=== PATIENT | male | born 1945 | race Two or more races ===

== ENCOUNTER → 2016-09-11 | Outpatient (CLI) | payer OTHER ==
[~2016-09-11] MED LIST: ASPI-231 PO; GLIP-115 PO; LIDOCAINE 2%HCL (LOCAL ANESTH.) INJ 20ML MDV ONE; LISI-646 PO; METF-312 PO; PANT40TA2 PO
== END | disposition home or self-care (01) ==
LOC: US 09:49
PROVIDERS: ATTEND Internal Medicine
DX: N63 Unspecified lump in breast (principal)
CPT/HCPCS: 76942

== ENCOUNTER → 2017-03-20 | Outpatient (CLI) | payer OTHER ==
[~2017-03-20] MED LIST changes: -LIDOCAINE 2%HCL (LOCAL ANESTH.) INJ 20ML MDV ONE; -METF-312 PO; +METF-370 PO
[2017-03-20 07:42] LABS: Basophils # (auto) 0.1 uL; CONDITION Y; DEFINITIVE SEE PRINTOUT; Neutrophils # (auto) 4.5 uL
[2017-03-20 07:59] LABS: Basophils % (auto) 0.5 % (0.0-2.0); Eosinophils # (auto) 0.6 uL; Hematocrit 45.2 % (41.0-53.0); Hemoglobin 15.5 g/dL (13.5-17.5); Lymphocytes # (auto) 3.7 uL; Lymphocytes % (auto) 35.9 % (10.0-50.0); Mean Corpuscular Hemoglobin 32.3 pg (28.0-32.0); Mean Corpuscular Hgb Conc. 34.2 g/dL (32.0-36.0); Mean Corpuscular Volume 94.5 fL (80.0-100.0); Mean Platelet Volume 9.6 fL (7.4-10.4); Monocytes # (auto) 1.4 uL; Monocytes % (auto) 13.4 % (0.0-12.0); Neutrophils % (auto) 44.2 % (37.0-80.0); Platelet Count (auto) 225 10^3/uL (140-450); Red Cell Distribution Width 14.4 % (11.6-16.0); White Blood Cell 10.2 10^3/uL (4.4-10.8)
[2017-03-20 08:26] LABS: Albumin 3.4 g/dL (3.4-5.0); BUN/Creatinine Ratio 14.5; Bilirubin, Total 0.8 mg/dL (0.2-1.0); Calcium 8.5 mg/dL (8.5-10.1); Potassium 3.9 mmol/L (3.5-5.1); Total Protein 7.6 g/dL (6.4-8.2)
== END | disposition home or self-care (01) ==
LOC: LAB 06:51
PROVIDERS: ATTEND Internal Medicine
DX: E78.4 Other hyperlipidemia (principal); E11.311 Type 2 diabetes mellitus with unspecified diabetic retinopathy with macular edema; Z12.5 Encounter for screening for malignant neoplasm of prostate; Z12.11 Encounter for screening for malignant neoplasm of colon
CPT/HCPCS: 36415; 80053; 80061; 82043; 82270; 82306; 83036; 84153; 84443; 85025

== ENCOUNTER 2017-06-15 05:49 | Inpatient (IN) | payer OTHER ==
[~2017-06-15] VITALS: Ht 165.1 cm; Wt 74.8 kg
[2017-06-15] MEDS ORDERED: MORPHINE SULF INJ 2 MG/ML SYRINGE 1ML IV ONE ×2 (06:15→08:30)
[2017-06-15] MEDS ORDERED: ASPirin 81 mg TAB PO ONE ×3 (06:15→11:00)
[2017-06-15] MEDS ORDERED: NITROGLYCERIN 0.4MG/HR TOPICAL PATCH TD ONE (06:15)
[2017-06-15] MEDS ORDERED: ONDANSETRON HCL 4 MG/2 ML VIAL IV ONE (06:15)
[2017-06-15 06:27] LABS: Hemoglobin 15.9 g/dL (13.5-17.5); Mean Corpuscular Hgb Conc. 33.7 g/dL (32.0-36.0); Mean Corpuscular Volume 94.9 fL (80.0-100.0); Mean Platelet Volume 8.3 fL (6.9-10.8); Platelet Count (auto) 201 10^3/uL (140-450); Red Cell Distribution Width 14.5 % (11.8-14.3)
[2017-06-15 06:42] LABS: INR 1.02 (0.9-1.15); Partial Thromboplastin Time 27.5 sec (22.64-33.71); Prothrombin Time 11.1 sec (9.37-12.3)
[2017-06-15 06:56] LABS: Albumin 3.6 g/dL (3.4-5.0); Alkaline Phosphatase 85 U/L (45-117); Anion Gap 7 (5-15); Aspartate Aminotransferase 23 U/L (15-37); BUN/Creatinine Ratio 10.9; Bilirubin, Total 1.1 mg/dL (0.2-1.0); Blood Urea Nitrogen 10 mg/dL (7-18); Calcium 8.3 mg/dL (8.5-10.1); Carbon Dioxide 27 mmol/L (21-32); Chloride 104 mmol/L (98-107); GFR African American 104 mL/min; GFR Non-African American 86 mL/min; Glucose 142 mg/dL (74-106); Magnesium 2.2 mg/dL (1.6-2.6); Potassium 3.9 mmol/L (3.5-5.1); Sodium 138 mmol/L (136-145); Total Protein 8.1 g/dL (6.4-8.2)
[2017-06-15 07:24] LABS: B-Type Natriuretic Peptide 25.1 pg/mL (0-100); Temperature: 21.5 C (20.0-25.0)
[2017-06-15] MEDS ORDERED: NITROGLYCERIN 0.4 MG SL TAB SL ONE (10:00)
[2017-06-15] MEDS ORDERED: ZOLPIDEM TARTRATE 5 MG TAB PO PRN ×2 (10:30→14:15)
[2017-06-15] MEDS ORDERED: MORPHINE SULF INJ 2 MG/ML SYRINGE 1ML IV PRN ×3 (10:30→14:15)
[2017-06-15] MEDS ORDERED: LORazepam 0.5 MG TAB PO PRN (10:30)
[2017-06-15] MEDS ORDERED: ONDANSETRON HCL 4 MG/2 ML VIAL IV PRN ×2 (10:30→14:15)
[2017-06-15] MEDS ORDERED: NITROGLYCERIN 0.4 MG SL TAB SL PRN ×4 (10:30→14:15)
[2017-06-15] MEDS ORDERED: ACETAMINOPHEN 325 MG TAB PO PRN (10:30)
[2017-06-15] MEDS ORDERED: ALUM & MAG HYDROX-SIMETH LIQ(MAALOX) 30 ML PO ONE (10:30)
[2017-06-15] MEDS ORDERED: cloNIDine HCL 0.1 MG TAB PO PRN (10:30)
[2017-06-15] MEDS ORDERED: DEXTROSE (50%) 50ML SYRG IV PRN (10:30)
[2017-06-15 10:31] LABS: Metamyelocytes % 0; Myelocytes % 0; Promyelocytes % 0; Reactive Lymphocytes 0
[2017-06-15 10:33] LABS: Platelet Estimate Adequate
[2017-06-15 10:34] LABS: Tear Drop Cells S
[2017-06-15] MEDS ORDERED: PANTOPRAZOLE 40 MG TAB PO ONE (10:45)
[2017-06-15] MEDS ORDERED: glipiZIDE 5 MG TAB PO ONE ×2 (10:45→11:00)
[2017-06-15] MEDS ORDERED: CLOPIDOGREL BISULFATE 75 MG TAB PO ONE ×2 (10:45→11:00)
[2017-06-15] MEDS ORDERED: MIDAZOLAM HCL 1MG/1ML-2 ML VIAL ONE (10:51)
[2017-06-15] MEDS ORDERED: SODIUM CHL 0.9% 50 ML ONE (10:51)
[2017-06-15] MEDS ORDERED: fentaNYL CITRATE 100 MCG/2 ML VL ONE (10:51)
[2017-06-15] MEDS ORDERED: LIDOCAINE 2%HCL (LOCAL ANESTH.) INJ 20ML MDV ONE (10:53)
[2017-06-15] MEDS ORDERED: IODIXANOL 320MG/ML 100ML BTL IV ONE (10:53)
[2017-06-15] MEDS ORDERED: ANGIOMAX 250 MG VIAL IV ONE (10:55)
[2017-06-15] MEDS ORDERED: CARVEDILOL 3.125 MG TAB PO ONE (11:00)
[2017-06-15] MEDS ORDERED: LISINOPRIL 20 MG TAB PO ONE (11:00)
[2017-06-15] MEDS ORDERED: DOCUSATE SOD 100 MG CAP PO ONE (11:00)
[2017-06-15 11:24] LABS: Urine Bilirubin Negative (Negative); Urine Blood Negative /uL (Negative); Urine Glucose Normal (Normal); Urine Ketone Negative (Negative); Urine Mucus FEW (None Seen); Urine Nitrite Negative (Negative); Urine RBC <1 /hpf (0 - 3); Urine Squamous Epithelial Cell FEW /hpf (<5); Urine Urobilinogen Normal (Negative)
[2017-06-15 11:26] LABS: Urine Color Amber (Yellow)
[2017-06-15] MEDS ORDERED: HEPARIN 1,000 UNITS/ml 1ML VIAL ONE (12:10)
[2017-06-15] MEDS ORDERED: CLOPIDOGREL 300 MG TAB ONE (13:00)
[2017-06-15] MEDS: InsuLIN REG 1unit/0.01ml Soln (100units/ml) SC SCH ×3 (13:55→21:56)
[2017-06-15] MEDS: ACCU-CHEK COMFORT CURVE STRIP VI SCH ×3 (13:55→21:56)
[2017-06-15] MEDS ORDERED: SODIUM CHLORIDE 0.9% 1,000 ML IV SCH (14:12)
[2017-06-15] MEDS ORDERED: MILK OF MAGNESIA 30ML SUSP PO ONE (14:15)
[2017-06-15] MEDS: SODIUM CHLOR 0.9% PF (SALINE LOCK) 10ML VIAL IV SCH ×2 (14:15→21:48)
[2017-06-15] MEDS ORDERED: HYDROcodone-ACET 5/325MG TAB PO PRN (14:15)
[2017-06-15 17:00] VITALS: BP 119/71
[2017-06-15] MEDS ORDERED: CARB25TA22 PO (17:50)
[2017-06-15] MEDS ORDERED: CLOP75TA41 PO (17:51)
[2017-06-15] MEDS ORDERED: CHOL20007 PO (17:51)
[2017-06-15] MEDS ORDERED: ATOR20TA PO (17:52)
[2017-06-15] MEDS: glipiZIDE 5 MG TAB PO SCH (18:25)
[2017-06-15 19:51] VITALS: BP 109/57
[2017-06-15] MEDS: ATORVASTATIN 20 MG TAB PO SCH (21:48)
[2017-06-15] MEDS: CARVEDILOL 3.125 MG TAB PO SCH (22:00)
[2017-06-15] MEDS ORDERED: FAMOTIDINE 20 MG TAB PO SCH (22:00)
[2017-06-16] VITALS: BP 110/66
[2017-06-16 04:09] VITALS: BP 98/53
[2017-06-16 05:38] LABS: Basophils # (auto) 0.1 uL; Basophils % (auto) 0.6 % (0.0-2.0); Eosinophils # (auto) 0.4 uL; Eosinophils % (auto) 3.5 % (0.0-7.0); Hematocrit 43.4 % (41.0-53.0); Hemoglobin 14.6 g/dL (13.5-17.5); Lymphocytes # (auto) 3.3 uL; Lymphocytes % (auto) 28.8 % (10.0-50.0); Mean Corpuscular Hemoglobin 31.7 pg (28.0-32.0); Mean Corpuscular Hgb Conc. 33.7 g/dL (32.0-36.0); Mean Platelet Volume 8.5 fL (6.9-10.8); Monocytes # (auto) 1.7 uL; Monocytes % (auto) 14.8 % (0.0-12.0); Neutrophils % (auto) 52.3 % (37.0-80.0); Nucleated Red Blood Cells % 0.1 %; Platelet Count (auto) 196 10^3/uL (140-450); Red Cell Distribution Width 14.2 % (11.8-14.3); White Blood Cell 11.4 10^3/uL (4.4-10.8)
[2017-06-16 06:05] LABS: Albumin 3.1 g/dL (3.4-5.0); Bilirubin, Total 1.7 mg/dL (0.2-1.0); Potassium 3.9 mmol/L (3.5-5.1); Total Protein 6.9 g/dL (6.4-8.2)
[2017-06-16] MEDS: ACCU-CHEK COMFORT CURVE STRIP VI SCH ×4 (06:51→22:00)
[2017-06-16] MEDS: glipiZIDE 5 MG TAB PO SCH ×2 (06:51→18:00)
[2017-06-16] MEDS: SODIUM CHLOR 0.9% PF (SALINE LOCK) 10ML VIAL IV SCH ×3 (06:51→22:00)
[2017-06-16] MEDS: InsuLIN REG 1unit/0.01ml Soln (100units/ml) SC SCH ×4 (06:51→22:00)
[2017-06-16 08:00] VITALS: BP 131/98
[2017-06-16 09:14] LABS: Basophils # (auto) 0.1 uL; Eosinophils # (auto) 0.5 uL; Hemoglobin 14.8 g/dL (13.5-17.5); Mean Corpuscular Volume 95.6 fL (80.0-100.0); White Blood Cell 11.3 10^3/uL (4.4-10.8)
[2017-06-16 09:27] LABS: Basophils % (auto) 0.8 % (0.0-2.0); Eosinophils % (auto) 4.2 % (0.0-7.0); Hematocrit 44.7 % (41.0-53.0); Lymphocytes # (auto) 3.1 uL; Lymphocytes % (auto) 27.2 % (10.0-50.0); Mean Corpuscular Hemoglobin 31.6 pg (28.0-32.0); Mean Corpuscular Hgb Conc. 33.1 g/dL (32.0-36.0); Mean Platelet Volume 8.7 fL (6.9-10.8); Monocytes # (auto) 1.6 uL; Neutrophils # (auto) 6.1 uL; Neutrophils % (auto) 53.8 % (37.0-80.0); Nucleated Red Blood Cells % 0.5 %; Platelet Count (auto) 199 10^3/uL (140-450); Red Cell Distribution Width 14.8 % (11.8-14.3)
[2017-06-16] MEDS: [UNRECOGNIZED DRUG - OTHER] PO SCH (10:00)
[2017-06-16] MEDS ORDERED: PATIENTS OWN MEDICATION PO SCH ×2 (10:00)
[2017-06-16] MEDS: CARVEDILOL 3.125 MG TAB PO SCH ×2 (10:00→22:00)
[2017-06-16] MEDS: PANTOPRAZOLE 40 MG TAB PO SCH (10:11)
[2017-06-16] MEDS: ASPirin 81 mg TAB PO SCH (10:11)
[2017-06-16] MEDS: CLOPIDOGREL BISULFATE 75 MG TAB PO SCH (10:11)
[2017-06-16] MEDS: DOCUSATE SOD 100 MG CAP PO SCH (10:11)
[2017-06-16] MEDS: LISINOPRIL 20 MG TAB PO SCH (10:11)
[2017-06-16 12:00] VITALS: BP 99/52
[2017-06-16] MEDS: Boost Glucose Control 8 Ounces PO SCH ×2 (12:00→18:00)
[2017-06-16 12:46] LABS: Urine Bilirubin Negative (Negative); Urine Blood TRACE /uL (Negative); Urine Color Yellow (Yellow); Urine Glucose TRACE mg/dL (Normal); Urine Ketone Negative (Negative); Urine Mucus FEW (None Seen); Urine Nitrite Negative (Negative); Urine RBC 7 /hpf (0 - 3); Urine Squamous Epithelial Cell FEW /hpf (<5); Urine Urobilinogen Normal (Negative); Urine WBC Clumps PRESENT /hpf (None Seen); Urine pH 6.5 (5.0-8.0)
[2017-06-16] MEDS ORDERED: MEPERIDINE HCL (25 MG/ML) 1ML VIAL IV ONE (13:30)
[2017-06-16] MEDS: ACETAMINOPHEN 500 MG TAB PO PRN (14:45)
[2017-06-16] MEDS: SODIUM CHLORIDE 0.9% 1,000 ML IV SCH ×2 (14:53→19:30)
[2017-06-16 16:00] VITALS: BP 119/68
[2017-06-16] MEDS ORDERED: BACITRACIN-POLYMYXIN B TOPICAL OINT UD TOP ONE (17:34)
[2017-06-16] MEDS: BACITRACIN-POLYMYXIN B TOPICAL OINT UD TOP SCH (17:45)
[2017-06-16] MEDS ORDERED: VANCOMYCIN PER PHARMACY 0 MG IV SCH (18:45)
[2017-06-16 20:00] VITALS: BP 90/57
[2017-06-16 20:19] LABS: Basophils # (auto) 0.1 uL; Basophils % (auto) 0.3 % (0.0-2.0); Eosinophils # (auto) 0 uL; Eosinophils % (auto) 0.1 % (0.0-7.0); Hematocrit 46.1 % (41.0-53.0); Hemoglobin 15.5 g/dL (13.5-17.5); Lymphocytes # (auto) 1.5 uL; Lymphocytes % (auto) 7.5 % (10.0-50.0); Mean Corpuscular Hemoglobin 32.1 pg (28.0-32.0); Mean Corpuscular Hgb Conc. 33.6 g/dL (32.0-36.0); Mean Corpuscular Volume 95.8 fL (80.0-100.0); Mean Platelet Volume 8.5 fL (6.9-10.8); Monocytes # (auto) 2.2 uL; Monocytes % (auto) 10.9 % (0.0-12.0); Neutrophils # (auto) 16.7 uL; Neutrophils % (auto) 81.2 % (37.0-80.0); Platelet Count (auto) 165 10^3/uL (140-450); Red Cell Distribution Width 14.4 % (11.8-14.3); White Blood Cell 20.5 10^3/uL (4.4-10.8)
[2017-06-16] MEDS: VANCOMYCIN 750 MG in D5W 5% 250 ML IV SCH (21:00)
[2017-06-16] MEDS: ATORVASTATIN 20 MG TAB PO SCH (22:00)
[2017-06-17] VITALS: BP 104/62
[2017-06-17] MEDS: SODIUM CHLORIDE 0.9% 1,000 ML IV SCH ×2 (00:12→05:00)
[2017-06-17 04:00] VITALS: BP 100/68
[2017-06-17] MEDS: SODIUM CHLOR 0.9% PF (SALINE LOCK) 10ML VIAL IV SCH ×3 (06:17→22:17)
[2017-06-17] MEDS: InsuLIN REG 1unit/0.01ml Soln (100units/ml) SC SCH ×4 (07:00→22:23)
[2017-06-17] MEDS: glipiZIDE 5 MG TAB PO SCH ×2 (07:00→17:52)
[2017-06-17] MEDS: ACCU-CHEK COMFORT CURVE STRIP VI SCH ×4 (07:00→22:20)
[2017-06-17 07:30] VITALS: BP 93/58
[2017-06-17 08:19] LABS: Basophils # (auto) 0.1 uL; Basophils % (auto) 0.5 % (0.0-2.0); Eosinophils # (auto) 0 uL; Eosinophils % (auto) 0.3 % (0.0-7.0); Hematocrit 42.1 % (41.0-53.0); Hemoglobin 14.3 g/dL (13.5-17.5); Lymphocytes # (auto) 1.6 uL; Lymphocytes % (auto) 12.2 % (10.0-50.0); Mean Corpuscular Hemoglobin 32.3 pg (28.0-32.0); Mean Corpuscular Hgb Conc. 33.9 g/dL (32.0-36.0); Mean Corpuscular Volume 95.4 fL (80.0-100.0); Monocytes # (auto) 1.5 uL; Monocytes % (auto) 11.7 % (0.0-12.0); Neutrophils # (auto) 9.8 uL; Neutrophils % (auto) 75.3 % (37.0-80.0); Platelet Count (auto) 148 10^3/uL (140-450); Red Cell Distribution Width 14.2 % (11.8-14.3)
[2017-06-17 08:57] LABS: Albumin 2.5 g/dL (3.4-5.0); BUN/Creatinine Ratio 17.1; Bilirubin, Total 2.2 mg/dL (0.2-1.0); Calcium 7.4 mg/dL (8.5-10.1); Potassium 3.5 mmol/L (3.5-5.1); Total Protein 6.2 g/dL (6.4-8.2)
[2017-06-17] MEDS: Boost Glucose Control 8 Ounces PO SCH ×3 (09:56→17:52)
[2017-06-17] MEDS: CLOPIDOGREL BISULFATE 75 MG TAB PO SCH (09:57)
[2017-06-17] MEDS: DOCUSATE SOD 100 MG CAP PO SCH (09:57)
[2017-06-17] MEDS: ACETAMINOPHEN 500 MG TAB PO PRN ×2 (09:57→19:53)
[2017-06-17] MEDS: ASPirin 81 mg TAB PO SCH (09:57)
[2017-06-17] MEDS: PANTOPRAZOLE 40 MG TAB PO SCH (09:58)
[2017-06-17] MEDS: [UNRECOGNIZED DRUG - OTHER] PO SCH ×2 (10:00→17:51)
[2017-06-17] MEDS: CARVEDILOL 3.125 MG TAB PO SCH ×2 (10:00→22:18)
[2017-06-17] MEDS: LISINOPRIL 20 MG TAB PO SCH (10:00)
[2017-06-17] MEDS: BACITRACIN-POLYMYXIN B TOPICAL OINT UD TOP SCH (10:01)
[2017-06-17] MEDS: VANCOMYCIN 750 MG in D5W 5% 250 ML IV SCH (10:03)
[2017-06-17] MEDS ORDERED: cefTRIAXone 1GM/50ML D5W 50 ML IV ONE (11:15)
[2017-06-17] MEDS ORDERED: SOD CHL 0.9%/ KCL 20MEQ 1,000 ML IV ONE (11:15)
[2017-06-17 12:01] VITALS: BP 90/49
[2017-06-17] MEDS: CARBIDOPA W LEVODOPA 25/100mg TABLET PO SCH ×3 (12:18→22:20)
[2017-06-17] MEDS: PHENAZOPYRIDINE HCL 100 MG TAB PO SCH ×2 (14:34→17:52)
[2017-06-17 15:58] VITALS: BP 88/55
[2017-06-17 19:42] VITALS: BP 110/64
[2017-06-17] MEDS: ATORVASTATIN 20 MG TAB PO SCH (22:19)
[2017-06-17] MEDS: PRAMIPEXOLE DIHYDROCHLORIDE MO 0.25 MG TAB PO SCH (22:20)
[2017-06-18] VITALS (7 sets, daily range): BP systolic 94–114; BP diastolic 47–61
[2017-06-18 04:38] LABS: Basophils # (auto) 0.1 uL; Basophils % (auto) 0.8 % (0.0-2.0); Eosinophils # (auto) 0.3 uL; Eosinophils % (auto) 3.8 % (0.0-7.0); Hematocrit 39.1 % (41.0-53.0); Hemoglobin 13.2 g/dL (13.5-17.5); Lymphocytes % (auto) 21.7 % (10.0-50.0); Mean Corpuscular Hemoglobin 31.9 pg (28.0-32.0); Mean Corpuscular Hgb Conc. 33.8 g/dL (32.0-36.0); Mean Corpuscular Volume 94.4 fL (80.0-100.0); Monocytes # (auto) 1.7 uL; Neutrophils # (auto) 4.9 uL; Neutrophils % (auto) 54.6 % (37.0-80.0); Platelet Count (auto) 125 10^3/uL (140-450); Red Cell Distribution Width 14.3 % (11.8-14.3)
[2017-06-18 04:56] LABS: Monocytes % (auto) 19.1 % (0.0-12.0)
[2017-06-18 05:02] LABS: BUN/Creatinine Ratio 17.9; Calcium 7.5 mg/dL (8.5-10.1); Potassium 3.6 mmol/L (3.5-5.1)
[2017-06-18] MEDS: CARBIDOPA W LEVODOPA 25/100mg TABLET PO SCH ×4 (06:34→22:06)
[2017-06-18] MEDS: SODIUM CHLOR 0.9% PF (SALINE LOCK) 10ML VIAL IV SCH ×3 (06:34→22:04)
[2017-06-18] MEDS: InsuLIN REG 1unit/0.01ml Soln (100units/ml) SC SCH ×4 (06:35→22:08)
[2017-06-18] MEDS: glipiZIDE 5 MG TAB PO SCH ×2 (06:35→18:00)
[2017-06-18] MEDS: ACCU-CHEK COMFORT CURVE STRIP VI SCH ×4 (06:35→22:07)
[2017-06-18] MEDS: PANTOPRAZOLE 40 MG TAB PO SCH (09:46)
[2017-06-18] MEDS: DOCUSATE SOD 100 MG CAP PO SCH (09:46)
[2017-06-18] MEDS: ASPirin 81 mg TAB PO SCH (09:46)
[2017-06-18] MEDS: CLOPIDOGREL BISULFATE 75 MG TAB PO SCH (09:46)
[2017-06-18] MEDS: BACITRACIN-POLYMYXIN B TOPICAL OINT UD TOP SCH (09:46)
[2017-06-18] MEDS: Boost Glucose Control 8 Ounces PO SCH ×3 (09:46→18:13)
[2017-06-18] MEDS: cefTRIAXone 1GM/50ML D5W 50 ML IV SCH (09:46)
[2017-06-18] MEDS: PHENAZOPYRIDINE HCL 100 MG TAB PO SCH ×3 (09:54→17:06)
[2017-06-18] MEDS: PRAMIPEXOLE DIHYDROCHLORIDE MO 0.25 MG TAB PO SCH ×2 (09:54→22:06)
[2017-06-18] MEDS: [UNRECOGNIZED DRUG - OTHER] PO SCH (09:56)
[2017-06-18] MEDS: CARVEDILOL 3.125 MG TAB PO SCH ×2 (10:00→22:07)
[2017-06-18] MEDS: LISINOPRIL 20 MG TAB PO SCH (10:02)
[2017-06-18] MEDS ORDERED: PSYL0.524 PO (12:18)
[2017-06-18] MEDS ORDERED: ASPirin 81 mg TAB PO ONE (18:15)
[2017-06-18] MEDS: ATORVASTATIN 20 MG TAB PO SCH (22:06)
[2017-06-19 05:21] VITALS: BP 103/57
[2017-06-19] MEDS: CARBIDOPA W LEVODOPA 25/100mg TABLET PO SCH ×4 (05:58→21:36)
[2017-06-19] MEDS: SODIUM CHLOR 0.9% PF (SALINE LOCK) 10ML VIAL IV SCH ×3 (05:58→21:49)
[2017-06-19] MEDS: ACCU-CHEK COMFORT CURVE STRIP VI SCH ×4 (06:48→21:51)
[2017-06-19] MEDS: glipiZIDE 5 MG TAB PO SCH ×2 (06:49→18:00)
[2017-06-19] MEDS: InsuLIN REG 1unit/0.01ml Soln (100units/ml) SC SCH ×4 (06:49→21:51)
[2017-06-19] MEDS: Boost Glucose Control 8 Ounces PO SCH ×3 (08:00→18:04)
[2017-06-19 08:30] VITALS: BP 99/52
[2017-06-19] MEDS: PHENAZOPYRIDINE HCL 100 MG TAB PO SCH ×3 (08:48→17:59)
[2017-06-19] MEDS: cefTRIAXone 1GM/50ML D5W 50 ML IV SCH (08:48)
[2017-06-19 09:00] VITALS: BP 99/52
[2017-06-19] MEDS: LISINOPRIL 20 MG TAB PO SCH (10:00)
[2017-06-19] MEDS: CARVEDILOL 3.125 MG TAB PO SCH ×2 (10:00→21:38)
[2017-06-19] MEDS: BACITRACIN-POLYMYXIN B TOPICAL OINT UD TOP SCH (10:11)
[2017-06-19] MEDS: CLOPIDOGREL BISULFATE 75 MG TAB PO SCH (10:11)
[2017-06-19] MEDS: DOCUSATE SOD 100 MG CAP PO SCH (10:11)
[2017-06-19] MEDS: PANTOPRAZOLE 40 MG TAB PO SCH (10:11)
[2017-06-19] MEDS: PRAMIPEXOLE DIHYDROCHLORIDE MO 0.25 MG TAB PO SCH ×2 (10:11→21:39)
[2017-06-19] MEDS: ASPirin 81 mg TAB PO SCH (10:11)
[2017-06-19] MEDS: [UNRECOGNIZED DRUG - OTHER] PO SCH (10:13)
[2017-06-19] MEDS ORDERED: AMPI500C8 PO (12:46)
[2017-06-19] MEDS ORDERED: CAR3125T PO (12:46)
[2017-06-19] MEDS ORDERED: LISI-275 PO (12:46)
[2017-06-19] MEDS ORDERED: FUROSEMIDE 40 MG/4 ML VIAL IV ONE (13:30)
[2017-06-19] MEDS ORDERED: ALBUMIN 25% 100 ML IV ONE (13:30)
[2017-06-19] MEDS ORDERED: POTASSIUM CHL 20 Meq TABLET PO ONE (13:30)
[2017-06-19] MEDS ORDERED: FURO40TA PO (16:01)
[2017-06-19] MEDS ORDERED: POTA10TA51 PO (16:01)
[2017-06-19] MEDS ORDERED: POTASSIUM CHL 10 Meq TABLET PO ONE (16:15)
[2017-06-19] MEDS ORDERED: FUROSEMIDE 20 MG TAB PO ONE (16:15)
[2017-06-19 17:00] VITALS: BP 128/70
[2017-06-19 20:00] VITALS: BP 128/59
[2017-06-19 20:45] VITALS: BP 128/59
[2017-06-19] MEDS: ATORVASTATIN 20 MG TAB PO SCH (21:36)
[2017-06-20] VITALS (7 sets, daily range): BP systolic 106–128; BP diastolic 56–74
[2017-06-20] MEDS: CARBIDOPA W LEVODOPA 25/100mg TABLET PO SCH ×4 (05:51→22:10)
[2017-06-20] MEDS: SODIUM CHLOR 0.9% PF (SALINE LOCK) 10ML VIAL IV SCH ×3 (05:52→22:14)
[2017-06-20 06:06] LABS: Hematocrit 40.9 % (41.0-53.0); Hemoglobin 14.2 g/dL (13.5-17.5); Mean Corpuscular Hemoglobin 32.9 pg (28.0-32.0); Mean Corpuscular Hgb Conc. 34.7 g/dL (32.0-36.0); Mean Corpuscular Volume 94.9 fL (80.0-100.0); Mean Platelet Volume 8.9 fL (6.9-10.8); Platelet Count (auto) 172 10^3/uL (140-450); Red Cell Distribution Width 13.6 % (11.8-14.3); White Blood Cell 9.1 10^3/uL (4.4-10.8)
[2017-06-20 06:12] LABS: Metamyelocytes % 0; Myelocytes % 0; Promyelocytes % 0; Reactive Lymphocytes 0
[2017-06-20] MEDS: glipiZIDE 5 MG TAB PO SCH ×2 (06:28→18:12)
[2017-06-20] MEDS: ACCU-CHEK COMFORT CURVE STRIP VI SCH ×4 (06:29→22:13)
[2017-06-20] MEDS: InsuLIN REG 1unit/0.01ml Soln (100units/ml) SC SCH ×4 (06:29→22:13)
[2017-06-20 06:33] LABS: BUN/Creatinine Ratio 17.2; Calcium 8.3 mg/dL (8.5-10.1); Potassium 3.4 mmol/L (3.5-5.1)
[2017-06-20] MEDS: Boost Glucose Control 8 Ounces PO SCH ×3 (08:00→18:12)
[2017-06-20] MEDS: cefTRIAXone 1GM/50ML D5W 50 ML IV SCH (08:44)
[2017-06-20] MEDS: PHENAZOPYRIDINE HCL 100 MG TAB PO SCH (08:44)
[2017-06-20 08:47] LABS: Large Platelets FEW; Platelet Estimate Adequate
[2017-06-20] MEDS: ASPirin 81 mg TAB PO SCH (09:45)
[2017-06-20] MEDS: PRAMIPEXOLE DIHYDROCHLORIDE MO 0.25 MG TAB PO SCH ×2 (09:45→22:10)
[2017-06-20] MEDS: POTASSIUM CHL 10 Meq TABLET PO SCH (09:46)
[2017-06-20] MEDS: BACITRACIN-POLYMYXIN B TOPICAL OINT UD TOP SCH (09:46)
[2017-06-20] MEDS: PANTOPRAZOLE 40 MG TAB PO SCH (09:46)
[2017-06-20] MEDS: CLOPIDOGREL BISULFATE 75 MG TAB PO SCH (09:46)
[2017-06-20] MEDS: CARVEDILOL 3.125 MG TAB PO SCH ×2 (09:48→22:10)
[2017-06-20] MEDS: LISINOPRIL 5 MG TAB PO SCH (09:49)
[2017-06-20] MEDS: FUROSEMIDE 20 MG TAB PO SCH (09:50)
[2017-06-20] MEDS: [UNRECOGNIZED DRUG - OTHER] PO SCH (09:51)
[2017-06-20] MEDS: DOCUSATE SOD 100 MG CAP PO SCH (10:11)
[2017-06-20] MEDS ORDERED: VANCOMYCIN PER PHARMACY 0 MG IV SCH (17:30)
[2017-06-20] MEDS: ACETAMINOPHEN 500 MG TAB PO PRN (18:13)
[2017-06-20] MEDS: VANCOMYCIN 1GM/250ML D5W 250 ML IV SCH (18:14)
[2017-06-20] MEDS: ATORVASTATIN 20 MG TAB PO SCH (22:10)
[2017-06-21 05:00] VITALS: BP 107/64
[2017-06-21 06:10] LABS: Hematocrit 40.8 % (41.0-53.0); Hemoglobin 13.9 g/dL (13.5-17.5); Mean Corpuscular Hemoglobin 32.4 pg (28.0-32.0); Mean Corpuscular Volume 95.1 fL (80.0-100.0); Mean Platelet Volume 8.6 fL (6.9-10.8); Platelet Count (auto) 179 10^3/uL (140-450); Red Cell Distribution Width 14.3 % (11.8-14.3)
[2017-06-21 06:13] LABS: Metamyelocytes % 0; Myelocytes % 0; Promyelocytes % 0; Reactive Lymphocytes 0
[2017-06-21] MEDS: VANCOMYCIN 1GM/250ML D5W 250 ML IV SCH ×2 (06:16→18:11)
[2017-06-21] MEDS: SODIUM CHLOR 0.9% PF (SALINE LOCK) 10ML VIAL IV SCH ×3 (06:17→21:56)
[2017-06-21] MEDS: CARBIDOPA W LEVODOPA 25/100mg TABLET PO SCH ×4 (06:18→21:56)
[2017-06-21 06:30] VITALS: BP 110/69
[2017-06-21] MEDS: glipiZIDE 5 MG TAB PO SCH ×2 (06:35→18:12)
[2017-06-21] MEDS: InsuLIN REG 1unit/0.01ml Soln (100units/ml) SC SCH ×4 (06:39→21:57)
[2017-06-21] MEDS: ACCU-CHEK COMFORT CURVE STRIP VI SCH ×4 (06:39→21:57)
[2017-06-21] MEDS: Boost Glucose Control 8 Ounces PO SCH ×3 (08:00→18:12)
[2017-06-21 08:31] LABS: Urine Bilirubin Negative (Negative); Urine Blood Negative /uL (Negative); Urine Color Yellow (Yellow); Urine Glucose Normal (Normal); Urine Ketone Negative (Negative); Urine Mucus FEW (None Seen); Urine Nitrite Negative (Negative); Urine RBC 1 /hpf (0 - 3); Urine Squamous Epithelial Cell FEW /hpf (<5)
[2017-06-21 08:51] LABS: Large Platelets FEW; Platelet Estimate Adequate
[2017-06-21] MEDS: [UNRECOGNIZED DRUG - OTHER] PO SCH (09:16)
[2017-06-21] MEDS: cefTRIAXone 1GM/50ML D5W 50 ML IV SCH (09:16)
[2017-06-21] MEDS: LISINOPRIL 5 MG TAB PO SCH (09:17)
[2017-06-21] MEDS: PANTOPRAZOLE 40 MG TAB PO SCH (09:17)
[2017-06-21] MEDS: CARVEDILOL 3.125 MG TAB PO SCH ×2 (09:17→21:55)
[2017-06-21] MEDS: POTASSIUM CHL 10 Meq TABLET PO SCH (09:17)
[2017-06-21] MEDS: CLOPIDOGREL BISULFATE 75 MG TAB PO SCH (09:18)
[2017-06-21] MEDS: FUROSEMIDE 20 MG TAB PO SCH (09:18)
[2017-06-21] MEDS: ASPirin 81 mg TAB PO SCH (09:18)
[2017-06-21] MEDS: PRAMIPEXOLE DIHYDROCHLORIDE MO 0.25 MG TAB PO SCH ×2 (09:18→21:56)
[2017-06-21] MEDS: DOCUSATE SOD 100 MG CAP PO SCH (09:22)
[2017-06-21] MEDS: BACITRACIN-POLYMYXIN B TOPICAL OINT UD TOP SCH (09:23)
[2017-06-21 14:07] VITALS: BP 101/65
[2017-06-21] MEDS: CEFEPIME HYDROCHLORIDE 2 GM in D5W 5% 50 ML IV SCH ×2 (14:10→21:54)
[2017-06-21 18:00] VITALS: BP 96/66
[2017-06-21 20:00] VITALS: BP 97/61
[2017-06-21] MEDS: ATORVASTATIN 20 MG TAB PO SCH (21:55)
[2017-06-21 22:00] VITALS: BP 97/61
[2017-06-22 05:00] VITALS: BP 101/55
[2017-06-22 05:19] LABS: Basophils # (auto) 0.1 uL; Basophils % (auto) 0.8 % (0.0-2.0); Eosinophils # (auto) 1.1 uL; Eosinophils % (auto) 10.9 % (0.0-7.0); Hematocrit 40.7 % (41.0-53.0); Hemoglobin 13.8 g/dL (13.5-17.5); Lymphocytes # (auto) 2.6 uL; Lymphocytes % (auto) 24.3 % (10.0-50.0); Mean Corpuscular Hemoglobin 31.5 pg (28.0-32.0); Mean Corpuscular Hgb Conc. 33.8 g/dL (32.0-36.0); Mean Corpuscular Volume 93.2 fL (80.0-100.0); Mean Platelet Volume 8.4 fL (6.9-10.8); Monocytes # (auto) 1.8 uL; Monocytes % (auto) 17.6 % (0.0-12.0); Neutrophils # (auto) 4.9 uL; Neutrophils % (auto) 46.4 % (37.0-80.0); Nucleated Red Blood Cells % 0.1 %; Platelet Count (auto) 207 10^3/uL (140-450); White Blood Cell 10.5 10^3/uL (4.4-10.8)
[2017-06-22] MEDS: CARBIDOPA W LEVODOPA 25/100mg TABLET PO SCH ×2 (05:29→11:53)
[2017-06-22] MEDS: VANCOMYCIN 1GM/250ML D5W 250 ML IV SCH (05:31)
[2017-06-22] MEDS: SODIUM CHLOR 0.9% PF (SALINE LOCK) 10ML VIAL IV SCH (05:31)
[2017-06-22] MEDS: CEFEPIME HYDROCHLORIDE 2 GM in D5W 5% 50 ML IV SCH (05:31)
[2017-06-22 05:53] LABS: BUN/Creatinine Ratio 22.5; Calcium 8.3 mg/dL (8.5-10.1); Potassium 3.5 mmol/L (3.5-5.1); Total Protein 6.9 g/dL (6.4-8.2)
[2017-06-22] MEDS: glipiZIDE 5 MG TAB PO SCH (06:28)
[2017-06-22] MEDS: InsuLIN REG 1unit/0.01ml Soln (100units/ml) SC SCH ×2 (06:35→11:55)
[2017-06-22] MEDS: ACCU-CHEK COMFORT CURVE STRIP VI SCH ×2 (06:36→11:54)
[2017-06-22] MEDS: Boost Glucose Control 8 Ounces PO SCH (08:00)
[2017-06-22] MEDS ORDERED: AMPI500C8 PO (08:54)
[2017-06-22] MEDS: PRAMIPEXOLE DIHYDROCHLORIDE MO 0.25 MG TAB PO SCH (10:37)
[2017-06-22] MEDS: FUROSEMIDE 20 MG TAB PO SCH (10:37)
[2017-06-22] MEDS: CLOPIDOGREL BISULFATE 75 MG TAB PO SCH (10:38)
[2017-06-22] MEDS: DOCUSATE SOD 100 MG CAP PO SCH (10:38)
[2017-06-22] MEDS: BACITRACIN-POLYMYXIN B TOPICAL OINT UD TOP SCH (10:39)
[2017-06-22] MEDS: ASPirin 81 mg TAB PO SCH (10:39)
[2017-06-22] MEDS: POTASSIUM CHL 10 Meq TABLET PO SCH (10:39)
[2017-06-22] MEDS: PANTOPRAZOLE 40 MG TAB PO SCH (10:39)
[2017-06-22] MEDS: [UNRECOGNIZED DRUG - OTHER] PO SCH (10:40)
[2017-06-22] MEDS: CARVEDILOL 3.125 MG TAB PO SCH (10:42)
[2017-06-22] MEDS: LISINOPRIL 5 MG TAB PO SCH (10:43)
[2017-06-22] MEDS ORDERED: VANCOMYCIN 1GM/250ML D5W 250 ML IV SCH (14:00)
== END 2017-06-22 12:20 | disposition home or self-care (01) | DRG 853 ==
LOC: ER 05:51 → TELE 05:52 → DOU IN ICU 16:50 → TELE-WESTW 06-18 11:39
PROVIDERS: ADMIT Internal Medicine; ATTEND Internal Medicine
PROC: 027034Z Dilation of Coronary Artery, One Artery with Drug-eluting Intraluminal Device, Percutaneous Approach (ICD-10-PCS; principal; 2017-06-15)
PROC: 4A023N7 Measurement of Cardiac Sampling and Pressure, Left Heart, Percutaneous Approach (ICD-10-PCS; 2017-06-15)
PROC: B2131ZZ Fluoroscopy of Multiple Coronary Artery Bypass Grafts using Low Osmolar Contrast (ICD-10-PCS; 2017-06-15)
PROC: B2181ZZ Fluoroscopy of Left Internal Mammary Bypass Graft using Low Osmolar Contrast (ICD-10-PCS; 2017-06-15)
PROC: B2111ZZ Fluoroscopy of Multiple Coronary Arteries using Low Osmolar Contrast (ICD-10-PCS; 2017-06-15)
DX: A41.50 Gram-negative sepsis, unspecified (principal); I21.4 Non-ST elevation (NSTEMI) myocardial infarction; E44.0 Moderate protein-calorie malnutrition; I50.43 Acute on chronic combined systolic (congestive) and diastolic (congestive) heart failure; E11.22 Type 2 diabetes mellitus with diabetic chronic kidney disease; E83.51 Hypocalcemia; G20 Parkinson's disease; I25.110 Atherosclerotic heart disease of native coronary artery with unstable angina pectoris; N12 Tubulo-interstitial nephritis, not specified as acute or chronic; I13.0 Hypertensive heart and chronic kidney disease with heart failure and stage 1 through stage 4 chronic kidney disease, or unspecified chronic kidney disease; J98.11 Atelectasis; E78.5 Hyperlipidemia, unspecified; I25.5 Ischemic cardiomyopathy; I45.10 Unspecified right bundle-branch block; N18.2 Chronic kidney disease, stage 2 (mild); B96.4 Proteus (mirabilis) (morganii) as the cause of diseases classified elsewhere; Z95.1 Presence of aortocoronary bypass graft; I25.2 Old myocardial infarction; Z85.46 Personal history of malignant neoplasm of prostate; Z68.27 Body mass index [BMI] 27.0-27.9, adult
CPT/HCPCS: 36415; 71010; 80048; 80053; 80061; 80202; 81001; 82962; 83036; 83735; 83880; 84443; 84484; 85007; 85025; 85027; 85048; 85610; 85730; 87040; 87077; 87081; 87086; 87088; 87186; 92928; 93005; 93306; 93459; 93971; 94761; 96374; 96375; 96376; 99152; 99153; C1874; J0696; J1815; J2250; J2405; J7060; Q9967

== ENCOUNTER → 2017-08-05 | Outpatient (CLI) | payer OTHER ==
[~2017-08-05] MED LIST changes: +AMPI500C8 PO; +ATOR20TA PO; +CAR3125T PO; +CARB25TA22 PO; +CHOL20007 PO; +CLOP75TA41 PO; +FURO40TA PO; +LISI-275 PO; -LISI-646 PO; -PANT40TA2 PO; +POTA10TA51 PO; +PSYL0.524 PO
[2017-08-05 13:25] LABS: B-Type Natriuretic Peptide 57.89 pg/mL (0-100); BUN/Creatinine Ratio 7.5; Calcium 8.8 mg/dL (8.5-10.1); Potassium 4.3 mmol/L (3.5-5.1)
[2017-08-05 13:29] LABS: Temperature: 21.7 C (20.0-25.0)
== END | disposition home or self-care (01) ==
LOC: LAB 11:38
PROVIDERS: ATTEND Internal Medicine Cardiovascular Disease
DX: I20.8 Other forms of angina pectoris (principal); R06.02 Shortness of breath
CPT/HCPCS: 36415; 80048; 83880

== ENCOUNTER → 2017-12-14 | Outpatient (CLI) | payer OTHER ==
[2017-12-14 13:22] LABS: Basophils # (auto) 0.3 uL; Basophils % (auto) 3.7 % (0.0-2.0); Eosinophils # (auto) 0.7 uL; Eosinophils % (auto) 8.5 % (0.0-7.0); Hematocrit 50.2 % (41.0-53.0); Hemoglobin 16.7 g/dL (13.5-17.5); Lymphocytes # (auto) 2.5 uL; Lymphocytes % (auto) 29.1 % (10.0-50.0); Mean Corpuscular Hemoglobin 31.7 pg (28.0-32.0); Mean Corpuscular Hgb Conc. 33.2 g/dL (32.0-36.0); Mean Corpuscular Volume 95.4 fL (80.0-100.0); Monocytes % (auto) 11.8 % (0.0-12.0); Neutrophils % (auto) 46.9 % (37.0-80.0); Nucleated Red Blood Cells % 0.1 %; Platelet Count (auto) 211 10^3/uL (140-450); Red Blood Cells 5.26 10^6/uL (4.5-5.90); Red Cell Distribution Width 14.2 % (11.8-14.3); White Blood Cell 8.5 10^3/uL (4.4-10.8)
[2017-12-14 14:12] LABS: Albumin 3.8 g/dL (3.4-5.0); BUN/Creatinine Ratio 7.6; Bilirubin, Total 0.9 mg/dL (0.2-1.0); Calcium 8.8 mg/dL (8.5-10.1); Potassium 4.2 mmol/L (3.5-5.1); Total Protein 8.5 g/dL (6.4-8.2)
== END | disposition home or self-care (01) ==
LOC: LAB 12:39
PROVIDERS: ATTEND Internal Medicine Cardiovascular Disease
DX: I13.0 Hypertensive heart and chronic kidney disease with heart failure and stage 1 through stage 4 chronic kidney disease, or unspecified chronic kidney disease (principal); N18.2 Chronic kidney disease, stage 2 (mild); I50.42 Chronic combined systolic (congestive) and diastolic (congestive) heart failure; I20.8 Other forms of angina pectoris
CPT/HCPCS: 36415; 80053; 80162; 83880; 85025

== ENCOUNTER → 2017-12-15 | Outpatient (CLI) | payer OTHER | END | disposition home or self-care (01) | LOC: XYW 08:42 | PROVIDERS: ATTEND Internal Medicine Cardiovascular Disease | DX: I07.1 Rheumatic tricuspid insufficiency (principal); I20.8 Other forms of angina pectoris; E11.22 Type 2 diabetes mellitus with diabetic chronic kidney disease; I13.0 Hypertensive heart and chronic kidney disease with heart failure and stage 1 through stage 4 chronic kidney disease, or unspecified chronic kidney disease; I50.42 Chronic combined systolic (congestive) and diastolic (congestive) heart failure; N18.2 Chronic kidney disease, stage 2 (mild) | CPT/HCPCS: 93306 ==

== ENCOUNTER → 2018-01-07 | Outpatient (CLI) | payer OTHER ==
[2018-01-07 10:04] LABS: Albumin 3.3 g/dL (3.4-5.0); BUN/Creatinine Ratio 7.8; Calcium 8.9 mg/dL (8.5-10.1); Potassium 4.1 mmol/L (3.5-5.1); Total Protein 7.3 g/dL (6.4-8.2)
== END | disposition home or self-care (01) ==
LOC: LAB 08:32
PROVIDERS: ATTEND Internal Medicine
DX: I12.9 Hypertensive chronic kidney disease with stage 1 through stage 4 chronic kidney disease, or unspecified chronic kidney disease (principal); E11.22 Type 2 diabetes mellitus with diabetic chronic kidney disease; N18.2 Chronic kidney disease, stage 2 (mild); E78.5 Hyperlipidemia, unspecified
CPT/HCPCS: 36415; 80053; 80061; 83036; 84439; 84443

== ENCOUNTER 2018-01-18 01:39 | Inpatient (IN) | payer OTHER ==
[~2018-01-18] VITALS: Ht 157.5 cm; Wt 81.1 kg
[2018-01-18 02:52] LABS: Basophils # (auto) 0.1 uL; Eosinophils # (auto) 0.5 uL; Neutrophils # (auto) 3.8 uL; Nucleated Red Blood Cells % 0.1 %; White Blood Cell 10.7 10^3/uL (4.4-10.8)
[2018-01-18 02:54] LABS: Basophils % (auto) 0.5 % (0.0-2.0); Eosinophils % (auto) 4.9 % (0.0-7.0); Hematocrit 44.9 % (41.0-53.0); Hemoglobin 16.9 g/dL (13.5-17.5); Lymphocytes # (auto) 4.6 uL; Lymphocytes % (auto) 43.1 % (10.0-50.0); Mean Corpuscular Hgb Conc. 37.6 g/dL (32.0-36.0); Mean Corpuscular Volume 100.9 fL (80.0-100.0); Monocytes # (auto) 1.7 uL; Monocytes % (auto) 15.8 % (0.0-12.0); Neutrophils % (auto) 35.7 % (37.0-80.0); Platelet Count (auto) 227 10^3/uL (140-450); Red Blood Cells 4.45 10^6/uL (4.5-5.90); Red Cell Distribution Width 14.3 % (11.8-14.3)
[2018-01-18] MEDS ORDERED: ONDANSETRON HCL 4 MG/2 ML VIAL IV ONE (03:00)
[2018-01-18] MEDS ORDERED: ASPirin-EC 325mg tab PO ONE (03:00)
[2018-01-18] MEDS ORDERED: NITROGLYCERIN 0.4 MG SL TAB SL ONE (03:00)
[2018-01-18 03:08] LABS: Alanine Aminotransferase 38 U/L (16-61); Albumin 3.5 g/dL (3.4-5.0); Anion Gap 10 (5-15); Aspartate Aminotransferase 26 U/L (15-37); BUN/Creatinine Ratio 17.2; Blood Urea Nitrogen 15 mg/dL (7-18); Calcium 9.3 mg/dL (8.5-10.1); Carbon Dioxide 25 mmol/L (21-32); Chloride 99 mmol/L (98-107); GFR African American 110 mL/min; GFR Non-African American 91 mL/min; Glucose 230 mg/dL (74-106); Magnesium 2.1 mg/dL (1.6-2.6); Sodium 134 mmol/L (136-145)
[2018-01-18 03:10] LABS: INR 0.96 (0.9-1.15); Prothrombin Time 10.5 sec (9.37-12.3)
[2018-01-18 03:13] LABS: Alkaline Phosphatase 107 U/L (45-117); Bilirubin, Total 0.6 mg/dL (0.2-1.0); Total Protein 8.5 g/dL (6.4-8.2)
[2018-01-18 03:57] LABS: Urine WBC None Seen /hpf (0 - 3)
[2018-01-18 04:19] LABS: Urine Bacteria NONE SEEN /hpf (None Seen); Urine Blood Negative /uL (Negative); Urine Specific Gravity 1.014 (1.001-1.035)
[2018-01-18 05:00] VITALS: BP 110/66
[2018-01-18] MEDS ORDERED: ACETAMINOPHEN 325 MG TAB PO PRN (06:15)
[2018-01-18] MEDS ORDERED: NITROGLYCERIN 0.4 MG SL TAB SL PRN (06:15)
[2018-01-18] MEDS ORDERED: ONDANSETRON HCL 4 MG/2 ML VIAL IV PRN (06:15)
[2018-01-18] MEDS ORDERED: DEXTROSE (50%) 50ML SYRG IV PRN (06:15)
[2018-01-18] MEDS ORDERED: ATORVASTATIN 20 MG TAB PO ONE (06:15)
[2018-01-18] MEDS ORDERED: MORPHINE SULFATE 4 MG/ML SYR/VIAL IV PRN (06:15)
[2018-01-18] MEDS: CARBIDOPA W LEVODOPA 25/100mg TABLET PO SCH ×3 (06:35→21:41)
[2018-01-18] MEDS ORDERED: IOHEXOL 350 MG/ML 100ML IJ ONE (06:51)
[2018-01-18 09:15] VITALS: BP 114/73
[2018-01-18] MEDS: FUROSEMIDE 40 MG TAB PO SCH (09:59)
[2018-01-18] MEDS: LISINOPRIL 5 MG TAB PO SCH (10:00)
[2018-01-18] MEDS: CARVEDILOL 3.125 MG TAB PO SCH ×2 (10:00→21:42)
[2018-01-18] MEDS ORDERED: ENOXAPARIN SOD 40 MG/0.4 ML SYRINGE SC SCH (10:00)
[2018-01-18] MEDS: FAMOTIDINE 20 MG TAB PO SCH ×2 (10:00→21:42)
[2018-01-18] MEDS: CLOPIDOGREL BISULFATE 75 MG TAB PO SCH (10:00)
[2018-01-18] MEDS ORDERED: ENOXAPARIN SOD 40 MG/0.4 ML SYRINGE SC ONE ×2 (10:30→11:15)
[2018-01-18] MEDS: ACCU-CHEK COMFORT CURVE STRIP VI SCH ×2 (12:02→17:56)
[2018-01-18] MEDS: NITROGLYCERIN 0.2MG/HR TOPICAL PATCH TD SCH (12:02)
[2018-01-18] MEDS: InsuLIN REG 1unit/0.01ml Soln (100units/ml) SC SCH ×2 (12:06→18:17)
[2018-01-18 13:00] VITALS: BP 132/84
[2018-01-18] MEDS ORDERED: OMEP20TA PO (14:01)
[2018-01-18] MEDS ORDERED: PRA25T PO (14:01)
[2018-01-18] MEDS ORDERED: LISI-646 PO (14:04)
[2018-01-18] MEDS ORDERED: FURO20TA PO (14:04)
[2018-01-18 17:00] VITALS: BP 105/66
[2018-01-18 20:00] VITALS: BP 110/66
[2018-01-18] MEDS: ATORVASTATIN 20 MG TAB PO SCH (21:42)
[2018-01-18] MEDS ORDERED: ENOXAPARIN SOD 80 MG/0.8ML SYRINGE SC SCH (22:00)
[2018-01-19] VITALS (48 sets, daily range): BP systolic 97–160; BP diastolic 62–108
[2018-01-19] MEDS: ACCU-CHEK COMFORT CURVE STRIP VI SCH ×4 (00:25→17:39)
[2018-01-19] MEDS: InsuLIN REG 1unit/0.01ml Soln (100units/ml) SC SCH ×4 (00:30→17:39)
[2018-01-19] MEDS: CARBIDOPA W LEVODOPA 25/100mg TABLET PO SCH ×3 (06:18→21:40)
[2018-01-19 07:06] LABS: Basophils # (auto) 0.1 uL; Lymphocytes # (auto) 2.8 uL; Monocytes # (auto) 1.6 uL
[2018-01-19 07:08] LABS: Basophils % (auto) 0.6 % (0.0-2.0); Eosinophils # (auto) 0.4 uL; Eosinophils % (auto) 4.9 % (0.0-7.0); Hematocrit 40.7 % (41.0-53.0); Hemoglobin 15.9 g/dL (13.5-17.5); Lymphocytes % (auto) 30.6 % (10.0-50.0); Mean Corpuscular Hemoglobin 39.6 pg (28.0-32.0); Mean Corpuscular Volume 101.2 fL (80.0-100.0); Monocytes % (auto) 17.6 % (0.0-12.0); Neutrophils # (auto) 4.2 uL; Neutrophils % (auto) 46.3 % (37.0-80.0); Nucleated Red Blood Cells % 0.3 %; Platelet Count (auto) 231 10^3/uL (140-450); Red Blood Cells 4.02 10^6/uL (4.5-5.90); Red Cell Distribution Width 14.3 % (11.8-14.3)
[2018-01-19] MEDS ORDERED: IODIXANOL 320MG/ML 100ML BTL IV ONE ×2 (07:22→09:34)
[2018-01-19] MEDS ORDERED: LIDOCAINE 2%HCL (LOCAL ANESTH.) INJ 20ML MDV ONE (07:22)
[2018-01-19 07:24] LABS: Mean Corpuscular Hgb Conc. 39.1 g/dL (32.0-36.0)
[2018-01-19 07:32] LABS: Albumin 3.4 g/dL (3.4-5.0); BUN/Creatinine Ratio 20.8; Calcium 9.1 mg/dL (8.5-10.1)
[2018-01-19] MEDS ORDERED: MIDAZOLAM HCL 1MG/1ML-2 ML VIAL ONE (07:34)
[2018-01-19] MEDS ORDERED: fentaNYL CITRATE 100 MCG/2 ML VL ONE (07:34)
[2018-01-19 07:35] LABS: Bilirubin, Total 1.2 mg/dL (0.2-1.0); Total Protein 7.9 g/dL (6.4-8.2)
[2018-01-19] MEDS ORDERED: ANGIOMAX 250 MG VIAL IV ONE ×2 (07:35→09:13)
[2018-01-19] MEDS ORDERED: SODIUM CHL 0.9% 50 ML ONE ×2 (07:35→09:12)
[2018-01-19] MEDS ORDERED: SODIUM CHL 0.9% 100 ML ONE (07:54)
[2018-01-19] MEDS ORDERED: NICARDIPINE 25MG/250ML BAG KIT 250 ML IV ONE (08:28)
[2018-01-19] MEDS ORDERED: EPTIFIBATIDE INJ (2MG/ML) 10ML VIAL IV ONE ×3 (08:52→09:13)
[2018-01-19] MEDS ORDERED: EPTIFIBATIDE DRIP(0.75MG/ML) 100 ML IV ONE (09:23)
[2018-01-19] MEDS ORDERED: TICAGRELOR 90 MG TAB ONE (09:31)
[2018-01-19] MEDS ORDERED: ASPirin 325 MG TAB ONE (09:37)
[2018-01-19] MEDS ORDERED: NITROGLYCERIN 50MG/250ML 250 ML IV ONE (09:55)
[2018-01-19] MEDS: LISINOPRIL 5 MG TAB PO SCH (10:00)
[2018-01-19] MEDS: NITROGLYCERIN 0.2MG/HR TOPICAL PATCH TD SCH (10:00)
[2018-01-19] MEDS: ASPirin 81 mg TAB PO SCH (10:00)
[2018-01-19] MEDS: EPTIFIBATIDE DRIP(0.75MG/ML) 100 ML IV SCH ×2 (10:00→17:39)
[2018-01-19] MEDS: CARVEDILOL 3.125 MG TAB PO SCH ×2 (10:00→22:00)
[2018-01-19] MEDS: NITROGLYCERIN 50MG/250ML 250 ML IV SCH (10:15)
[2018-01-19] MEDS ORDERED: HYDROmorphone HCL 2 MG/ML VL IV PRN (10:15)
[2018-01-19] MEDS ORDERED: LIDOCAINE 50MG/5ML INJ 5ML SYRINGE IV ONE (10:15)
[2018-01-19] MEDS: FAMOTIDINE 20 MG TAB PO SCH ×2 (12:30→21:40)
[2018-01-19] MEDS: FUROSEMIDE 40 MG TAB PO SCH (12:30)
[2018-01-19] MEDS: CLOPIDOGREL BISULFATE 75 MG TAB PO SCH (12:30)
[2018-01-19 14:14] LABS: Basophils # (auto) 0.1 uL; Basophils % (auto) 0.6 % (0.0-2.0); Eosinophils # (auto) 0.3 uL; Eosinophils % (auto) 2.8 % (0.0-7.0); Hematocrit 47.6 % (41.0-53.0); Hemoglobin 16.1 g/dL (13.5-17.5); Lymphocytes # (auto) 2.8 uL; Lymphocytes % (auto) 23.7 % (10.0-50.0); Mean Corpuscular Hemoglobin 31.8 pg (28.0-32.0); Mean Corpuscular Hgb Conc. 33.7 g/dL (32.0-36.0); Mean Corpuscular Volume 94.3 fL (80.0-100.0); Monocytes # (auto) 1.7 uL; Monocytes % (auto) 14.7 % (0.0-12.0); Neutrophils # (auto) 6.7 uL; Neutrophils % (auto) 58.2 % (37.0-80.0); Nucleated Red Blood Cells % 0.1 %; Platelet Count (auto) 225 10^3/uL (140-450); Red Blood Cells 5.05 10^6/uL (4.5-5.90); Red Cell Distribution Width 14.2 % (11.8-14.3); White Blood Cell 11.6 10^3/uL (4.4-10.8)
[2018-01-19 14:27] LABS: BUN/Creatinine Ratio 20.7; Calcium 8.4 mg/dL (8.5-10.1); Potassium 4.2 mmol/L (3.5-5.1)
[2018-01-19] MEDS: HYDROcodone-ACET 5/325MG TAB PO PRN ×2 (15:40→21:40)
[2018-01-19] MEDS: ATORVASTATIN 20 MG TAB PO SCH (21:40)
[2018-01-20] VITALS (36 sets, daily range): BP systolic 102–147; BP diastolic 64–93
[2018-01-20] MEDS: EPTIFIBATIDE DRIP(0.75MG/ML) 100 ML IV SCH (00:17)
[2018-01-20] MEDS: InsuLIN REG 1unit/0.01ml Soln (100units/ml) SC SCH ×4 (00:35→18:13)
[2018-01-20] MEDS: ACCU-CHEK COMFORT CURVE STRIP VI SCH ×4 (00:35→18:13)
[2018-01-20] MEDS: CARBIDOPA W LEVODOPA 25/100mg TABLET PO SCH ×3 (06:02→21:49)
[2018-01-20] MEDS: FUROSEMIDE 40 MG TAB PO SCH (10:00)
[2018-01-20] MEDS: CLOPIDOGREL BISULFATE 75 MG TAB PO SCH (10:00)
[2018-01-20] MEDS: CARVEDILOL 3.125 MG TAB PO SCH ×2 (10:00→21:51)
[2018-01-20] MEDS: ASPirin 81 mg TAB PO SCH (10:00)
[2018-01-20] MEDS: LISINOPRIL 5 MG TAB PO SCH (10:00)
[2018-01-20] MEDS: NITROGLYCERIN 50MG/250ML 250 ML IV SCH (10:15)
[2018-01-20] MEDS: FAMOTIDINE 20 MG TAB PO SCH ×2 (11:25→21:51)
[2018-01-20] MEDS: NITROGLYCERIN 0.2MG/HR TOPICAL PATCH TD SCH (11:25)
[2018-01-20] MEDS ORDERED: DOCU100T15 PO (21:40)
[2018-01-20] MEDS: ATORVASTATIN 20 MG TAB PO SCH (21:49)
[2018-01-20] MEDS: TEMAZEPAM 15 MG CAP PO PRN (21:51)
[2018-01-21 05:37] VITALS: BP 97/63
[2018-01-21] MEDS: ACCU-CHEK COMFORT CURVE STRIP VI SCH ×4 (06:04→17:10)
[2018-01-21] MEDS: CARBIDOPA W LEVODOPA 25/100mg TABLET PO SCH ×3 (06:05→21:35)
[2018-01-21] MEDS: InsuLIN REG 1unit/0.01ml Soln (100units/ml) SC SCH ×4 (06:11→17:42)
[2018-01-21 06:47] LABS: BUN/Creatinine Ratio 27.7; Calcium 8.8 mg/dL (8.5-10.1); Potassium 3.9 mmol/L (3.5-5.1)
[2018-01-21 07:33] LABS: Basophils # (auto) 0.1 uL; Basophils % (auto) 0.5 % (0.0-2.0); Eosinophils # (auto) 0.6 uL; Eosinophils % (auto) 5.1 % (0.0-7.0); Hematocrit 49.3 % (41.0-53.0); Hemoglobin 16.7 g/dL (13.5-17.5); Lymphocytes # (auto) 3.1 uL; Lymphocytes % (auto) 28.2 % (10.0-50.0); Mean Corpuscular Hgb Conc. 33.9 g/dL (32.0-36.0); Mean Corpuscular Volume 94.3 fL (80.0-100.0); Monocytes # (auto) 1.9 uL; Monocytes % (auto) 17.7 % (0.0-12.0); Neutrophils # (auto) 5.3 uL; Neutrophils % (auto) 48.5 % (37.0-80.0); Nucleated Red Blood Cells % 0.1 %; Platelet Count (auto) 215 10^3/uL (140-450); Red Blood Cells 5.22 10^6/uL (4.5-5.90); Red Cell Distribution Width 14.1 % (11.8-14.3); White Blood Cell 10.9 10^3/uL (4.4-10.8)
[2018-01-21 09:00] VITALS: BP 110/67
[2018-01-21] MEDS: LISINOPRIL 5 MG TAB PO SCH (10:00)
[2018-01-21] MEDS: NITROGLYCERIN 0.2MG/HR TOPICAL PATCH TD SCH (10:00)
[2018-01-21] MEDS: ASPirin 81 mg TAB PO SCH (10:52)
[2018-01-21] MEDS: CLOPIDOGREL BISULFATE 75 MG TAB PO SCH (10:53)
[2018-01-21] MEDS: CARVEDILOL 3.125 MG TAB PO SCH ×2 (10:53→21:34)
[2018-01-21] MEDS: FAMOTIDINE 20 MG TAB PO SCH ×2 (10:54→21:35)
[2018-01-21] MEDS: FUROSEMIDE 40 MG TAB PO SCH (10:54)
[2018-01-21 13:00] VITALS: BP 126/76
[2018-01-21 17:13] VITALS: BP 135/77
[2018-01-21] MEDS: TEMAZEPAM 15 MG CAP PO PRN (21:30)
[2018-01-21] MEDS: ATORVASTATIN 20 MG TAB PO SCH (21:34)
[2018-01-21 22:51] VITALS: BP 109/70
[2018-01-22 05:42] VITALS: BP 121/71
[2018-01-22 05:50] LABS: Hematocrit 48.1 % (41.0-53.0); Hemoglobin 16.5 g/dL (13.5-17.5); Mean Corpuscular Hemoglobin 32.4 pg (28.0-32.0); Mean Corpuscular Hgb Conc. 34.4 g/dL (32.0-36.0); Mean Corpuscular Volume 94.3 fL (80.0-100.0); Platelet Count (auto) 205 10^3/uL (140-450); Red Cell Distribution Width 13.9 % (11.8-14.3); White Blood Cell 9.9 10^3/uL (4.4-10.8)
[2018-01-22] MEDS: InsuLIN REG 1unit/0.01ml Soln (100units/ml) SC SCH ×3 (06:00→11:45)
[2018-01-22] MEDS: CARBIDOPA W LEVODOPA 25/100mg TABLET PO SCH (06:04)
[2018-01-22] MEDS: ACCU-CHEK COMFORT CURVE STRIP VI SCH ×3 (06:04→11:45)
[2018-01-22 06:13] LABS: Band Neutrophils % (manual) 0; Blast Cells 0; Metamyelocytes % 0; Myelocytes % 0; Promyelocytes % 0; Reactive Lymphocytes 0
[2018-01-22 06:34] LABS: BUN/Creatinine Ratio 23.4; Calcium 8.7 mg/dL (8.5-10.1); Potassium 3.5 mmol/L (3.5-5.1)
[2018-01-22 06:54] LABS: Lymphocytes % (manual) 34 (10.0-50.0); Monocytes % (manual) 13 (0-12)
[2018-01-22 06:55] LABS: Basophils % (manual) 1 (0.0-2.0); Eosinophils % (manual) 10 (0-7)
[2018-01-22 08:51] VITALS: BP 151/70
[2018-01-22] MEDS: NITROGLYCERIN 0.2MG/HR TOPICAL PATCH TD SCH (10:00)
[2018-01-22] MEDS: FAMOTIDINE 20 MG TAB PO SCH (10:29)
[2018-01-22] MEDS: ASPirin 81 mg TAB PO SCH (10:30)
[2018-01-22] MEDS: CLOPIDOGREL BISULFATE 75 MG TAB PO SCH (10:30)
[2018-01-22] MEDS: FUROSEMIDE 40 MG TAB PO SCH (10:30)
[2018-01-22] MEDS: LISINOPRIL 5 MG TAB PO SCH (10:30)
[2018-01-22] MEDS: CARVEDILOL 3.125 MG TAB PO SCH (10:31)
[2018-01-22 12:03] VITALS: BP 115/68
== END 2018-01-22 13:25 | disposition home or self-care (01) | DRG 246 ==
LOC: ER 01:44 → TELE 01:45 → TELE-WESTW 09:27 → ICU WEST 01-19 12:40 → TELE-WESTW 01-20 12:00
PROVIDERS: ADMIT Nurse Practitioner; ATTEND Internal Medicine
PROC: 027135Z Dilation of Coronary Artery, Two Arteries with Two Drug-eluting Intraluminal Devices, Percutaneous Approach (ICD-10-PCS; principal; 2018-01-19)
PROC: 4A023N7 Measurement of Cardiac Sampling and Pressure, Left Heart, Percutaneous Approach (ICD-10-PCS; 2018-01-19)
PROC: B2121ZZ Fluoroscopy of Single Coronary Artery Bypass Graft using Low Osmolar Contrast (ICD-10-PCS; 2018-01-19)
PROC: B2111ZZ Fluoroscopy of Multiple Coronary Arteries using Low Osmolar Contrast (ICD-10-PCS; 2018-01-19)
DX: I21.4 Non-ST elevation (NSTEMI) myocardial infarction (principal); I50.21 Acute systolic (congestive) heart failure; G20 Parkinson's disease; E11.9 Type 2 diabetes mellitus without complications; I25.110 Atherosclerotic heart disease of native coronary artery with unstable angina pectoris; I11.0 Hypertensive heart disease with heart failure; E78.5 Hyperlipidemia, unspecified; I77.1 Stricture of artery; E66.9 Obesity, unspecified; Z82.49 Family history of ischemic heart disease and other diseases of the circulatory system; Z85.46 Personal history of malignant neoplasm of prostate; Z83.3 Family history of diabetes mellitus; Z95.1 Presence of aortocoronary bypass graft; I25.2 Old myocardial infarction; Z90.49 Acquired absence of other specified parts of digestive tract
CPT/HCPCS: 36415; 71045; 71275; 80048; 80053; 81001; 82962; 83735; 83880; 84443; 84484; 85007; 85025; 85027; 85379; 85610; 85730; 86850; 86900; 86901; 87081; 93005; 96374; 99152; 99153; C1874; J1815; J2250; J2405; Q9967

== ENCOUNTER → 2018-07-16 | Outpatient (CLI) | payer OTHER ==
[~2018-07-16] MED LIST changes: -AMPI500C8 PO; +DOCU100T15 PO; +FURO20TA PO; -FURO40TA PO; -LISI-275 PO; +OMEP20TA PO; +PRA25T PO
[2018-07-16 12:55] LABS: Urine Bacteria NONE SEEN /hpf (None Seen); Urine Blood Negative /uL (Negative); Urine Specific Gravity 1.024 (1.001-1.035); Urine WBC <1 /hpf (0 - 3)
[2018-07-16 13:17] LABS: Free T4 (Free Thyroxine) 1.05 ng/dL (0.89-1.76); Prostate Specific Antigen 0.54 ng/mL (0.0-4.0)
[2018-07-16 13:23] LABS: Albumin 3.6 g/dL (3.4-5.0); Calcium 8.5 mg/dL (8.5-10.1); Potassium 4.1 mmol/L (3.5-5.1)
[2018-07-16 13:28] LABS: BUN/Creatinine Ratio 11.5; Bilirubin, Total 1.9 mg/dL (0.2-1.0); Total Protein 7.7 g/dL (6.4-8.2)
[2018-07-16 13:37] LABS: Basophils # (auto) 0.1 uL; Basophils % (auto) 0.7 % (0.0-2.0); Eosinophils # (auto) 0.8 uL; Eosinophils % (auto) 8.5 % (0.0-7.0); Hematocrit 46.7 % (41.0-53.0); Hemoglobin 15.8 g/dL (13.5-17.5); Lymphocytes # (auto) 3.2 uL; Lymphocytes % (auto) 34.3 % (10.0-50.0); Mean Corpuscular Hemoglobin 32.5 pg (28.0-32.0); Mean Corpuscular Hgb Conc. 33.8 g/dL (32.0-36.0); Mean Corpuscular Volume 96.1 fL (80.0-100.0); Monocytes # (auto) 1.1 uL; Monocytes % (auto) 11.9 % (0.0-12.0); Neutrophils # (auto) 4.2 uL; Neutrophils % (auto) 44.6 % (37.0-80.0); Platelet Count (auto) 205 10^3/uL (140-450); Red Blood Cells 4.86 10^6/uL (4.5-5.90); Red Cell Distribution Width 13.9 % (11.8-14.3); White Blood Cell 9.3 10^3/uL (4.4-10.8)
== END | disposition home or self-care (01) ==
LOC: LAB 11:43
PROVIDERS: ATTEND Internal Medicine
DX: I10 Essential (primary) hypertension (principal); E11.9 Type 2 diabetes mellitus without complications; Z85.46 Personal history of malignant neoplasm of prostate; Z79.899 Other long term (current) drug therapy
CPT/HCPCS: 36415; 80053; 81001; 82043; 82306; 82607; 83036; 84153; 84439; 84443; 85025; 85652

== ENCOUNTER → 2019-02-07 | Outpatient (CLI) | payer OTHER ==
[2019-02-07 11:06] LABS: Basophils # (auto) 0.1 uL; Hemoglobin 15.3 g/dL (13.5-17.5); Lymphocytes # (auto) 2.5 uL
[2019-02-07 11:11] LABS: Basophils % (auto) 1.1 % (0.0-2.0); Eosinophils # (auto) 0.7 uL; Eosinophils % (auto) 8.7 % (0.0-7.0); Hematocrit 42.2 % (41.0-53.0); Lymphocytes % (auto) 33.4 % (10.0-50.0); Mean Corpuscular Hgb Conc. 36.2 g/dL (32.0-36.0); Mean Corpuscular Volume 99.3 fL (80.0-100.0); Monocytes # (auto) 1.1 uL; Monocytes % (auto) 15.1 % (0.0-12.0); Neutrophils # (auto) 3.1 uL; Neutrophils % (auto) 41.7 % (37.0-80.0); Nucleated Red Blood Cells % 0.1 %; Platelet Count (auto) 180 10^3/uL (140-450); Red Blood Cells 4.24 10^6/uL (4.5-5.90); Red Cell Distribution Width 13.9 % (11.8-14.3); White Blood Cell 7.6 10^3/uL (4.4-10.8)
[2019-02-07 11:16] LABS: Urine Bacteria NONE SEEN /hpf (None Seen); Urine Blood Negative /uL (Negative); Urine Mucus FEW (None Seen); Urine Specific Gravity 1.019 (1.001-1.035); Urine WBC <1 /hpf (0 - 3)
[2019-02-07 11:48] LABS: Potassium 3.7 mmol/L (3.5-5.1)
[2019-02-07 11:59] LABS: Albumin 3.6 g/dL (3.4-5.0); BUN/Creatinine Ratio 11.6; Bilirubin, Total 2.2 mg/dL (0.2-1.0); Calcium 9.1 mg/dL (8.5-10.1); Total Protein 7.7 g/dL (6.4-8.2)
== END | disposition home or self-care (01) ==
LOC: LAB 10:22
PROVIDERS: ATTEND Internal Medicine
DX: E11.9 Type 2 diabetes mellitus without complications (principal)
CPT/HCPCS: 36415; 80053; 80061; 81001; 83036; 84439; 84443; 85025; 85652

== ENCOUNTER → 2019-05-16 | Outpatient (CLI) | payer OTHER ==
[~2019-05-16] MED LIST changes: +FURO1TAB33 PO; -FURO20TA PO; -GLIP-115 PO; +GLIP5TAB12 PO
== END | disposition home or self-care (01) ==
LOC: LAB 10:27
PROVIDERS: ATTEND Internal Medicine
DX: E11.9 Type 2 diabetes mellitus without complications (principal); I10 Essential (primary) hypertension
CPT/HCPCS: 36415; 83036

== ENCOUNTER → 2019-06-16 | Outpatient (CLI) | payer OTHER | END | disposition home or self-care (01) | LOC: XYW 08:18 | PROVIDERS: ATTEND Internal Medicine | DX: I08.3 Combined rheumatic disorders of mitral, aortic and tricuspid valves (principal); I11.9 Hypertensive heart disease without heart failure | CPT/HCPCS: 93306 ==

== ENCOUNTER → 2019-06-29 | Outpatient (CLI) | payer OTHER ==
[~2019-06-29] VITALS: Ht 167.6 cm; Wt 77.1 kg
[~2019-06-29] MED LIST changes: +ADENOSINE 65 MG in GIVE UN-DILUTED 0 ML IV STA
== END | disposition home or self-care (01) ==
LOC: XY 08:19
PROVIDERS: ATTEND Internal Medicine
DX: I25.718 Atherosclerosis of autologous vein coronary artery bypass graft(s) with other forms of angina pectoris (principal); E11.65 Type 2 diabetes mellitus with hyperglycemia; E78.5 Hyperlipidemia, unspecified; I10 Essential (primary) hypertension
CPT/HCPCS: 78452; 93017; A9500; J0153

== ENCOUNTER → 2019-07-04 | Outpatient (CLI) | payer OTHER ==
[~2019-07-04] MED LIST changes: -ADENOSINE 65 MG in GIVE UN-DILUTED 0 ML IV STA
[2019-07-04 11:14] LABS: Albumin 3.4 g/dL (3.4-5.0); Calcium 8.7 mg/dL (8.5-10.1)
[2019-07-04 11:22] LABS: BUN/Creatinine Ratio 16.5; Bilirubin, Total 1.2 mg/dL (0.2-1.0); Magnesium 1.9 mg/dL (1.6-2.6); Total Protein 7.6 g/dL (6.4-8.2)
== END | disposition home or self-care (01) ==
LOC: LAB 09:17
PROVIDERS: ATTEND Internal Medicine
DX: E11.9 Type 2 diabetes mellitus without complications (principal); G20 Parkinson's disease; I25.718 Atherosclerosis of autologous vein coronary artery bypass graft(s) with other forms of angina pectoris; I10 Essential (primary) hypertension; E78.5 Hyperlipidemia, unspecified
CPT/HCPCS: 36415; 80053; 80061; 83036; 83735; 83880

== ENCOUNTER 2019-09-17 19:19 | Emergency (ER) | payer OTHER ==
[~2019-09-17] VITALS: Ht 165.1 cm; Wt 78.9 kg
[2019-09-17 21:19] LABS: Basophils # (auto) 0.1 uL; Basophils % (auto) 0.8 % (0.0-2.0); Eosinophils # (auto) 0.9 uL; Eosinophils % (auto) 6.9 % (0.0-7.0); Hemoglobin 15.9 g/dL (13.5-17.5); Lymphocytes # (auto) 3.2 uL; Lymphocytes % (auto) 24.9 % (10.0-50.0); Mean Corpuscular Hemoglobin 32.5 pg (28.0-32.0); Mean Corpuscular Hgb Conc. 34.5 g/dL (32.0-36.0); Mean Corpuscular Volume 94.2 fL (80.0-100.0); Monocytes # (auto) 1.5 uL; Monocytes % (auto) 11.4 % (0.0-12.0); Neutrophils # (auto) 7.3 uL; Nucleated Red Blood Cells % 0.1 %; Platelet Count (auto) 213 10^3/uL (140-450); Red Blood Cells 4.89 10^6/uL (4.5-5.90); Red Cell Distribution Width 13.7 % (11.8-14.3); White Blood Cell 13.1 10^3/uL (4.4-10.8)
[2019-09-17 21:26] LABS: Albumin 3.5 g/dL (3.4-5.0); Calcium 9.3 mg/dL (8.5-10.1); Potassium 4.5 mmol/L (3.5-5.1)
[2019-09-17 21:29] LABS: BUN/Creatinine Ratio 9.8; Bilirubin, Total 0.9 mg/dL (0.2-1.0)
[2019-09-17 22:04] VITALS: BP 162/74
== END 2019-09-17 22:24 | disposition home or self-care (01) ==
LOC: ER 19:19
DX: N39.0 Urinary tract infection, site not specified (principal); E11.9 Type 2 diabetes mellitus without complications; E78.5 Hyperlipidemia, unspecified; I10 Essential (primary) hypertension; I25.2 Old myocardial infarction; Z90.49 Acquired absence of other specified parts of digestive tract; Z95.1 Presence of aortocoronary bypass graft
CPT/HCPCS: 36415; 74176; 80053; 82962; 85025

== ENCOUNTER → 2019-09-20 | Outpatient (CLI) | payer OTHER ==
[2019-09-20 10:54] LABS: Cholesterol 173 mg/dL (< 200)
[2019-09-20 10:58] LABS: HDL Cholesterol 38 mg/dL (40-59); LDL Cholesterol 115 mg/dL (< 100); Triglycerides 185 mg/dL (< 150)
== END | disposition home or self-care (01) ==
LOC: LAB 10:08
PROVIDERS: ATTEND Internal Medicine
DX: E11.319 Type 2 diabetes mellitus with unspecified diabetic retinopathy without macular edema (principal); I25.10 Atherosclerotic heart disease of native coronary artery without angina pectoris
CPT/HCPCS: 36415; 80061; 83036; 84153

== ENCOUNTER → 2019-10-14 | Outpatient (CLI) | payer OTHER ==
[2019-10-14 10:52] LABS: Potassium 4.1 mmol/L (3.5-5.1)
[2019-10-14 10:58] LABS: Calcium 9.1 mg/dL (8.5-10.1)
== END | disposition home or self-care (01) ==
LOC: LAB 08:33
PROVIDERS: ATTEND Internal Medicine
DX: E78.5 Hyperlipidemia, unspecified (principal); I11.0 Hypertensive heart disease with heart failure; I50.21 Acute systolic (congestive) heart failure; I25.718 Atherosclerosis of autologous vein coronary artery bypass graft(s) with other forms of angina pectoris; M06.9 Rheumatoid arthritis, unspecified
CPT/HCPCS: 36415; 80048; 83880

== ENCOUNTER → 2019-10-27 | Outpatient (CLI) | payer OTHER ==
[2019-10-27 09:41] LABS: Calcium 9.4 mg/dL (8.5-10.1); Potassium 4.2 mmol/L (3.5-5.1)
[2019-10-27 09:44] LABS: BUN/Creatinine Ratio 9.4
== END | disposition home or self-care (01) ==
LOC: LAB 08:59
PROVIDERS: ATTEND Internal Medicine
DX: I11.0 Hypertensive heart disease with heart failure (principal); I50.42 Chronic combined systolic (congestive) and diastolic (congestive) heart failure
CPT/HCPCS: 36415; 80048; 83880

== ENCOUNTER → 2019-11-04 | Outpatient (CLI) | payer OTHER ==
[2019-11-04 10:41] LABS: BUN/Creatinine Ratio 17.9; Calcium 9.3 mg/dL (8.5-10.1); Potassium 4.6 mmol/L (3.5-5.1)
== END | disposition home or self-care (01) ==
LOC: LAB 09:09
PROVIDERS: ATTEND Urology
DX: N40.0 Benign prostatic hyperplasia without lower urinary tract symptoms (principal); R31.9 Hematuria, unspecified
CPT/HCPCS: 36415; 80048; 84154

== ENCOUNTER 2019-11-11 08:00 | Day surgery (SDC) | payer OTHER ==
[2019-11-07 09:42] LABS: Basophils # (auto) 0.1 10 ^3/uL (0-0.2); Basophils % (auto) 0.9 % (0.0-2.0); Eosinophils % (auto) 12.2 % (0.0-7.0); Hematocrit 44.6 % (41.0-53.0); Hemoglobin 15.1 g/dL (13.5-17.5); Lymphocytes # (auto) 2.5 10 ^3/uL (0.4-5.4); Lymphocytes % (auto) 30.9 % (10.0-50.0); Mean Corpuscular Hemoglobin 31.8 pg (28.0-32.0); Mean Corpuscular Hgb Conc. 33.8 g/dL (32.0-36.0); Mean Corpuscular Volume 94.3 fL (80.0-100.0); Monocytes % (auto) 12.1 % (0.0-12.0); Neutrophils # (auto) 3.6 10 ^3/uL (1.6-8.6); Neutrophils % (auto) 43.9 % (37.0-80.0); Platelet Count (auto) 193 10^3/uL (140-450); Red Blood Cells 4.73 10^6/uL (4.5-5.90); Red Cell Distribution Width 13.7 % (11.8-14.3); White Blood Cell 8.2 10^3/uL (4.4-10.8)
[2019-11-07 09:56] LABS: INR 1.03 (0.9-1.15); Partial Thromboplastin Time 27.5 sec (23.64-32.05)
[~2019-11-11] VITALS: Ht 162.6 cm; Wt 73.0 kg
[~2019-11-11 08:00] MED LIST changes: -ATOR20TA PO; -CHOL20007 PO; -DOCU100T15 PO; +LOSA25TA38 PO; +LOVA40TA72 PO; -OMEP20TA PO; -PRA25T PO; -PSYL0.524 PO; +RASA1TAB4 PO
[2019-11-11] MEDS ORDERED: SODIUM CHLORIDE LOCK 10 ML ONE (08:23)
[2019-11-11] MEDS ORDERED: diphenhdrAMINE HCL 50 MG/1 ML VL ONE (08:24)
[2019-11-11] MEDS ORDERED: LIDOCAINE VISCOUS 2% 15ML UD ONE (08:24)
[2019-11-11] MEDS: MIDAZOLAM HCL 5 MG/ML-1ML VIAL ONE ×2 (09:12→09:18)
[2019-11-11] MEDS: fentaNYL CITRATE 100 MCG/2 ML VL ONE ×2 (09:12→09:18)
[2019-11-11 10:15] VITALS: BP 121/66
== END 2019-11-11 10:28 | disposition home or self-care (01) ==
LOC: GI 08:00
PROVIDERS: ATTEND Internal Medicine Gastroenterology
DX: K29.50 Unspecified chronic gastritis without bleeding (principal); K22.8 Other specified diseases of esophagus; I11.0 Hypertensive heart disease with heart failure; I50.9 Heart failure, unspecified; G20 Parkinson's disease; E11.9 Type 2 diabetes mellitus without complications; E78.00 Pure hypercholesterolemia, unspecified; J44.9 Chronic obstructive pulmonary disease, unspecified; Z95.1 Presence of aortocoronary bypass graft; Z79.01 Long term (current) use of anticoagulants; Z90.89 Acquired absence of other organs; Z98.890 Other specified postprocedural states; Z79.82 Long term (current) use of aspirin; Z85.46 Personal history of malignant neoplasm of prostate; Z79.84 Long term (current) use of oral hypoglycemic drugs
CPT/HCPCS: 36415; 43239; 43450; 82962; 85025; 85610; 85730; 88305; 88342; J2250; J3010; J7030

== ENCOUNTER → 2020-03-08 | Outpatient (CLI) | payer OTHER ==
[~2020-03-08] MED LIST changes: +ROSU20TA14 PO
[2020-03-08 08:44] LABS: Urine Bacteria NONE SEEN /hpf (None Seen); Urine Blood Negative /uL (Negative); Urine Mucus FEW (None Seen); Urine Specific Gravity 1.019 (1.001-1.035); Urine WBC 1 /hpf (0 - 3)
[2020-03-08 09:10] LABS: Cholesterol 134 mg/dL (< 200); HDL Cholesterol 38 mg/dL (40-59); LDL Cholesterol 82 mg/dL (< 100); Triglycerides 245 mg/dL (< 150)
== END | disposition home or self-care (01) ==
LOC: LAB 08:19
PROVIDERS: ATTEND Internal Medicine
DX: I25.718 Atherosclerosis of autologous vein coronary artery bypass graft(s) with other forms of angina pectoris (principal); E11.9 Type 2 diabetes mellitus without complications
CPT/HCPCS: 36415; 80061; 81001; 82043; 83036; 84439; 84443

== ENCOUNTER → 2020-03-29 | Day surgery (SDC) | payer OTHER ==
[2020-03-23 12:29] LABS: Urine WBC None Seen /hpf (0 - 3)
[2020-03-23 12:30] LABS: Basophils # (auto) 0.1 10 ^3/uL (0-0.2); Basophils % (auto) 0.9 % (0.0-2.0); Eosinophils # (auto) 0.6 10 ^3/uL (0-0.8); Eosinophils % (auto) 6.7 % (0.0-7.0); Hematocrit 45.3 % (41.0-53.0); Hemoglobin 15.1 g/dL (13.5-17.5); Lymphocytes # (auto) 3.1 10 ^3/uL (0.4-5.4); Lymphocytes % (auto) 35.1 % (10.0-50.0); Mean Corpuscular Hemoglobin 31.5 pg (28.0-32.0); Mean Corpuscular Hgb Conc. 33.2 g/dL (32.0-36.0); Mean Corpuscular Volume 94.8 fL (80.0-100.0); Monocytes # (auto) 1.2 10 ^3/uL (0-1.3); Monocytes % (auto) 13.5 % (0.0-12.0); Neutrophils # (auto) 3.9 10 ^3/uL (1.6-8.6); Neutrophils % (auto) 43.8 % (37.0-80.0); Nucleated Red Blood Cells % 0.1 %; Platelet Count (auto) 185 10^3/uL (140-450); Red Blood Cells 4.78 10^6/uL (4.5-5.90); Red Cell Distribution Width 14.6 % (11.8-14.3); White Blood Cell 8.9 10^3/uL (4.4-10.8)
[2020-03-23 12:46] LABS: INR 1.03 (0.9-1.15); Partial Thromboplastin Time 27.9 sec (23.64-32.05)
[2020-03-23 12:53] LABS: Urine Amorphous Crystal FEW /hpf (None Seen); Urine Bacteria NONE SEEN /hpf (None Seen); Urine Blood Negative /uL (Negative); Urine Mucus FEW (None Seen); Urine Specific Gravity 1.024 (1.001-1.035)
[2020-03-23 13:18] LABS: Albumin 3.5 g/dL (3.4-5.0); Calcium 9.2 mg/dL (8.5-10.1); Potassium 4.5 mmol/L (3.5-5.1)
[2020-03-23 13:21] LABS: BUN/Creatinine Ratio 15.7; Bilirubin, Total 1.3 mg/dL (0.2-1.0); Total Protein 7.8 g/dL (6.4-8.2)
[~2020-03-29] VITALS: Ht 154.9 cm; Wt 73.5 kg
[~2020-03-29] MED LIST changes: +ACCU-CHEK COMFORT CURVE STRIP VI ONE; -ASPI-231 PO; +ETOMIDATE (2MG/ML) 20ML VIAL IV ONE; +GLYCOPYRROLATE 0.2 MG/ML 1ML VIAL ONE; +HYDROmorphone HCL 2 MG/ML VL IV PRN; +IOHEXOL 300 MG/ML 100ML BOTTLE IJ ONE; +LIDOCAINE 1% (LOCAL ANESTH.) PF 5ml SDV ONE; -LOVA40TA72 PO; +MIDAZOLAM HCL 1MG/1ML-2 ML VIAL ONE; +NALOXONE HCL 0.4 MG/ML VIAL IV PRN; +NEOSTIGMINE 1 MG/ML INJ (10mg/10ML VIAL) ONE; +ONDANSETRON HCL 4 MG/2 ML VIAL IV PRN; -POTA10TA51 PO; -RASA1TAB4 PO; +ROCURONIUM 10MG/ML 10ML VIAL IV ONE; +STERILE WATER 10 ML ONE; +SUCCINYLCHOLINE CHLORIDE 20 MG/ML 10ML VIAL IV ONE; +ceFAZolin 1GM/50ML 50 ML IV ONE; +ePHEDrine SULFATE 50 MG/ML AMP ONE
[2020-03-29 12:25] VITALS: BP 134/67
== END | disposition home or self-care (01) ==
LOC: SUR 08:23
PROVIDERS: ATTEND Urology
DX: N39.3 Stress incontinence (female) (male) (principal); N36.42 Intrinsic sphincter deficiency (ISD); G20 Parkinson's disease; K21.9 Gastro-esophageal reflux disease without esophagitis; I25.2 Old myocardial infarction; I11.0 Hypertensive heart disease with heart failure; M19.90 Unspecified osteoarthritis, unspecified site; Z85.46 Personal history of malignant neoplasm of prostate; Z11.59 Encounter for screening for other viral diseases; Z95.1 Presence of aortocoronary bypass graft; Z79.899 Other long term (current) drug therapy; Z98.890 Other specified postprocedural states; Z68.31 Body mass index [BMI] 31.0-31.9, adult
CPT/HCPCS: 36415; 52327; 72170; 80053; 81001; 82962; 85025; 85610; 85730; C1769; J0330; J0690; J2250; J7030; L8606; Q9967; U0003; 76000

== ENCOUNTER → 2020-06-29 | Outpatient (CLI) | payer OTHER ==
[~2020-06-29] MED LIST changes: -ACCU-CHEK COMFORT CURVE STRIP VI ONE; -ETOMIDATE (2MG/ML) 20ML VIAL IV ONE; -GLYCOPYRROLATE 0.2 MG/ML 1ML VIAL ONE; -HYDROmorphone HCL 2 MG/ML VL IV PRN; -IOHEXOL 300 MG/ML 100ML BOTTLE IJ ONE; -LIDOCAINE 1% (LOCAL ANESTH.) PF 5ml SDV ONE; -MIDAZOLAM HCL 1MG/1ML-2 ML VIAL ONE; -NALOXONE HCL 0.4 MG/ML VIAL IV PRN; -NEOSTIGMINE 1 MG/ML INJ (10mg/10ML VIAL) ONE; -ONDANSETRON HCL 4 MG/2 ML VIAL IV PRN; -ROCURONIUM 10MG/ML 10ML VIAL IV ONE; -STERILE WATER 10 ML ONE; -SUCCINYLCHOLINE CHLORIDE 20 MG/ML 10ML VIAL IV ONE; -ceFAZolin 1GM/50ML 50 ML IV ONE; -ePHEDrine SULFATE 50 MG/ML AMP ONE
== END | disposition home or self-care (01) ==
LOC: LAB 13:35
PROVIDERS: ATTEND Internal Medicine
DX: E11.21 Type 2 diabetes mellitus with diabetic nephropathy (principal)
CPT/HCPCS: 36415; 83036

== ENCOUNTER → 2020-10-02 | Outpatient (CLI) | payer OTHER ==
[~2020-10-02] MED LIST changes: -CLOP75TA41 PO; +CLOP75TA70 PO
[2020-10-02 14:56] LABS: Basophils # (auto) 0.1 10 ^3/uL (0-0.2); Basophils % (auto) 1.1 % (0.0-2.0); Eosinophils # (auto) 0.7 10 ^3/uL (0-0.8); Eosinophils % (auto) 8.8 % (0.0-7.0); Hematocrit 43.3 % (41.0-53.0); Hemoglobin 14.7 g/dL (13.5-17.5); Lymphocytes # (auto) 3.1 10 ^3/uL (0.4-5.4); Lymphocytes % (auto) 37.1 % (10.0-50.0); Mean Corpuscular Hemoglobin 31.8 pg (28.0-32.0); Mean Corpuscular Hgb Conc. 33.9 g/dL (32.0-36.0); Mean Corpuscular Volume 93.8 fL (80.0-100.0); Monocytes # (auto) 1.2 10 ^3/uL (0-1.3); Monocytes % (auto) 14.6 % (0.0-12.0); Neutrophils # (auto) 3.2 10 ^3/uL (1.6-8.6); Neutrophils % (auto) 38.4 % (37.0-80.0); Platelet Count (auto) 206 10^3/uL (140-450); Red Blood Cells 4.62 10^6/uL (4.5-5.90); Red Cell Distribution Width 14.5 % (11.8-14.3); White Blood Cell 8.4 10^3/uL (4.4-10.8)
[2020-10-02 15:38] LABS: Albumin 3.5 g/dL (3.4-5.0); Calcium 9.1 mg/dL (8.5-10.1); Potassium 4.2 mmol/L (3.5-5.1)
[2020-10-02 15:41] LABS: BUN/Creatinine Ratio 13.6; Total Protein 7.9 g/dL (6.4-8.2)
== END | disposition home or self-care (01) ==
LOC: LAB 14:43
PROVIDERS: ATTEND Internal Medicine
DX: I11.0 Hypertensive heart disease with heart failure (principal); I50.32 Chronic diastolic (congestive) heart failure; E11.9 Type 2 diabetes mellitus without complications; N40.0 Benign prostatic hyperplasia without lower urinary tract symptoms
CPT/HCPCS: 36415; 80053; 83036; 83880; 84153; 85025; 85652

== ENCOUNTER → 2020-11-12 | Outpatient (CLI) | payer OTHER | END | disposition home or self-care (01) | LOC: LAB 12:54 | PROVIDERS: ATTEND Urology | DX: C61 Malignant neoplasm of prostate (principal); R97.20 Elevated prostate specific antigen [PSA] | CPT/HCPCS: 84153 ==

== ENCOUNTER → 2020-11-20 | Outpatient (CLI) | payer OTHER | END | disposition home or self-care (01) | LOC: XYW 12:34 | PROVIDERS: ATTEND Internal Medicine | DX: I34.0 Nonrheumatic mitral (valve) insufficiency (principal); I48.91 Unspecified atrial fibrillation; I11.9 Hypertensive heart disease without heart failure | CPT/HCPCS: 93306 ==

== ENCOUNTER 2021-03-06 06:57 | Day surgery (SDC) | payer OTHER ==
[2021-03-04 10:39] LABS: Basophils # (auto) 0.1 10 ^3/uL (0-0.2); Basophils % (auto) 0.9 % (0.0-2.0); Eosinophils # (auto) 0.7 10 ^3/uL (0-0.8); Eosinophils % (auto) 7.3 % (0.0-7.0); Hematocrit 39.1 % (41.0-53.0); Hemoglobin 13.8 g/dL (13.5-17.5); Lymphocytes # (auto) 3.4 10 ^3/uL (0.4-5.4); Lymphocytes % (auto) 36.6 % (10.0-50.0); Mean Corpuscular Hemoglobin 32.9 pg (28.0-32.0); Mean Corpuscular Hgb Conc. 35.2 g/dL (32.0-36.0); Mean Corpuscular Volume 93.4 fL (80.0-100.0); Monocytes # (auto) 1.3 10 ^3/uL (0-1.3); Monocytes % (auto) 14.1 % (0.0-12.0); Neutrophils # (auto) 3.8 10 ^3/uL (1.6-8.6); Neutrophils % (auto) 41.1 % (37.0-80.0); Platelet Count (auto) 188 10^3/uL (140-450); Red Blood Cells 4.19 10^6/uL (4.5-5.90); Red Cell Distribution Width 14.5 % (11.8-14.3); White Blood Cell 9.2 10^3/uL (4.4-10.8)
[2021-03-04 10:51] LABS: INR 0.97 (0.9-1.15); Partial Thromboplastin Time 26.4 sec (23.0-31.2)
[2021-03-04 11:01] LABS: Albumin 3.6 g/dL (3.4-5.0); Calcium 8.7 mg/dL (8.5-10.1); Potassium 4.4 mmol/L (3.5-5.1)
[2021-03-04 11:05] LABS: BUN/Creatinine Ratio 12.8; Bilirubin, Total 1.2 mg/dL (0.2-1.0); Total Protein 7.5 g/dL (6.4-8.2)
[~2021-03-06] VITALS: Ht 157.5 cm; Wt 72.6 kg
[~2021-03-06 06:57] MED LIST changes: +ASPI-231 PO; -CAR3125T PO; +CARV6.25 PO; -LOSA25TA38 PO; +NITR0.4S29 SL; +PANT40TA2 PO; +ROSU10TA16 PO; -ROSU20TA14 PO
[2021-03-06] MEDS ORDERED: IODIXANOL 320MG/ML 100ML BTL IV ONE (07:36)
[2021-03-06] MEDS ORDERED: LIDOCAINE 2%HCL (LOCAL ANESTH.) INJ 20ML MDV ONE (07:36)
[2021-03-06] MEDS ORDERED: ANGIOMAX 250 MG VIAL IV ONE (08:41)
[2021-03-06] MEDS ORDERED: SODIUM CHL 0.9% 50 ML ONE (08:41)
[2021-03-06] MEDS ORDERED: MIDAZOLAM HCL 1MG/1ML-2 ML VIAL ONE (08:41)
[2021-03-06] MEDS ORDERED: fentaNYL CITRATE 100 MCG/2 ML VL ONE (08:41)
[2021-03-06] MEDS ORDERED: VERAPAMIL 2.5MG/ML INJ 2ML VIAL IV ONE (08:42)
[2021-03-06] MEDS ORDERED: HEPARIN SODIUM (PORCINE) 5000 UNITS/ML 1ML VIAL ONE (08:42)
[2021-03-06] MEDS ORDERED: NITROGLYCERIN 5MG/ML 10ML VIAL IV ONE (08:42)
[2021-03-06] MEDS ORDERED: BICA50TA13 PO (10:52)
[2021-03-06] MEDS ORDERED: HYDROcodone-ACET 5/325MG TAB PO PRN (11:00)
[2021-03-06] MEDS ORDERED: ACETAMINOPHEN 500 MG TAB PO PRN (11:00)
[2021-03-06] MEDS ORDERED: ONDANSETRON HCL 4 MG/2 ML VIAL IV PRN (11:00)
== END 2021-03-06 14:46 | disposition home or self-care (01) ==
LOC: CATH 06:57
PROVIDERS: ATTEND Internal Medicine
DX: I25.810 Atherosclerosis of coronary artery bypass graft(s) without angina pectoris (principal); E78.5 Hyperlipidemia, unspecified; I25.2 Old myocardial infarction; J44.9 Chronic obstructive pulmonary disease, unspecified; E11.9 Type 2 diabetes mellitus without complications; I11.0 Hypertensive heart disease with heart failure; G47.30 Sleep apnea, unspecified; Z68.29 Body mass index [BMI] 29.0-29.9, adult; Z20.822 Contact with and (suspected) exposure to COVID-19; Z98.890 Other specified postprocedural states; Z79.82 Long term (current) use of aspirin; Z79.84 Long term (current) use of oral hypoglycemic drugs; Z79.899 Other long term (current) drug therapy; Z85.46 Personal history of malignant neoplasm of prostate
CPT/HCPCS: 36415; 80053; 85025; 85049; 85610; 85730; 93459; C1725; C1769; C1887; C1894; C9600; J0583; J1644; J2250; J3010; J3490; Q9967; U0003; 99152; 99153

== ENCOUNTER → 2021-11-07 | Outpatient (CLI) | payer OTHER ==
[~2021-11-07] MED LIST changes: -ASPI-231 PO; +ASPI1TAB20 PO; +BICA50TA13 PO; -CARB25TA22 PO; +CARB25TA79 PO
== END | disposition home or self-care (01) ==
LOC: XYW 08:37
PROVIDERS: ATTEND Internal Medicine
DX: I08.3 Combined rheumatic disorders of mitral, aortic and tricuspid valves (principal); I47.1 Supraventricular tachycardia
CPT/HCPCS: 93306

== ENCOUNTER → 2021-11-11 | Outpatient (CLI) | payer OTHER ==
[2021-11-11 11:13] LABS: Free T4 (Free Thyroxine) 0.94 ng/dL (0.89-1.76)
[2021-11-11 11:20] LABS: Potassium 5.1 mmol/L (3.5-5.1)
[2021-11-11 11:20] LABS: Urine Bacteria NONE SEEN /hpf (None Seen); Urine Blood Negative /uL (Negative); Urine Mucus FEW (None Seen); Urine Specific Gravity 1.022 (1.001-1.035); Urine WBC <1 /hpf (0 - 3)
[2021-11-11 11:25] LABS: Basophils # (auto) 0.1 10 ^3/uL (0-0.2); Basophils % (auto) 0.8 % (0.0-2.0); Eosinophils # (auto) 0.6 10 ^3/uL (0-0.8); Eosinophils % (auto) 6.6 % (0.0-7.0); Hematocrit 40.2 % (41.0-53.0); Hemoglobin 13.6 g/dL (13.5-17.5); Lymphocytes # (auto) 2.5 10 ^3/uL (0.4-5.4); Lymphocytes % (auto) 30.2 % (10.0-50.0); Mean Corpuscular Hemoglobin 32.3 pg (28.0-32.0); Mean Corpuscular Hgb Conc. 33.9 g/dL (32.0-36.0); Mean Corpuscular Volume 95.5 fL (80.0-100.0); Monocytes # (auto) 1.1 10 ^3/uL (0-1.3); Monocytes % (auto) 12.8 % (0.0-12.0); Neutrophils # (auto) 4.1 10 ^3/uL (1.6-8.6); Neutrophils % (auto) 49.6 % (37.0-80.0); Nucleated Red Blood Cells % 0.2 %; Red Blood Cells 4.21 10^6/uL (4.5-5.90); Red Cell Distribution Width 13.8 % (11.8-14.3); White Blood Cell 8.4 10^3/uL (4.4-10.8)
[2021-11-11 11:37] LABS: Albumin 3.3 g/dL (3.4-5.0); BUN/Creatinine Ratio 13.1; Bilirubin, Total 0.7 mg/dL (0.2-1.0); Calcium 9.1 mg/dL (8.5-10.1); Total Protein 7.2 g/dL (6.4-8.2)
== END | disposition home or self-care (01) ==
LOC: LAB 09:54
PROVIDERS: ATTEND Internal Medicine
DX: E11.9 Type 2 diabetes mellitus without complications (principal); I25.10 Atherosclerotic heart disease of native coronary artery without angina pectoris
CPT/HCPCS: 36415; 80053; 80061; 81001; 82043; 82607; 83036; 84439; 84443; 85025; 85652

== ENCOUNTER → 2022-01-20 | Outpatient (CLI) | payer OTHER ==
[~2022-01-20] VITALS: Ht 165.1 cm; Wt 77.1 kg
[~2022-01-20] MED LIST changes: +ADENOSINE 65 MG in GIVE UN-DILUTED 0 ML IV ONE
[2022-01-20 09:50] VITALS: BP 131/58
== END | disposition home or self-care (01) ==
LOC: XYW 08:35
PROVIDERS: ATTEND Internal Medicine
DX: I47.1 Supraventricular tachycardia (principal)
CPT/HCPCS: 78452; 93017; A9500; J0153

== ENCOUNTER → 2023-01-12 | Outpatient (CLI) | payer OTHER ==
[~2023-01-12] MED LIST changes: -ADENOSINE 65 MG in GIVE UN-DILUTED 0 ML IV ONE
== END | disposition home or self-care (01) ==
LOC: LAB 12:28
PROVIDERS: ATTEND Urology
DX: C61 Malignant neoplasm of prostate (principal)
CPT/HCPCS: 84153; 84154

== ENCOUNTER → 2023-02-09 | Outpatient (CLI) | payer OTHER | END | disposition home or self-care (01) | LOC: LAB 07:51 | PROVIDERS: ATTEND Radiology Radiation Oncology | DX: C61 Malignant neoplasm of prostate (principal) | CPT/HCPCS: 84154 ==

== ENCOUNTER → 2023-03-09 | Outpatient (CLI) | payer OTHER | END | disposition home or self-care (01) | LOC: XYW 07:31 | PROVIDERS: ATTEND Urology | DX: C61 Malignant neoplasm of prostate (principal) | CPT/HCPCS: 78306; A9503 ==